=== PATIENT | female | born 1985 | race Caucasian/White ===

== ENCOUNTER 2022-04-17 17:57 | Inpatient (IN) | payer BC, SELFPAY ==
[2022-04-17 18:18] VITALS: BP 127/86; PULSE 114; RESP 18; TEMP 36.5; O2SAT 98; BMI 26.9
--- NOTE | 2022-04-17 18:18 | ED_ITS ---
HPI - General Adult General: Chief complaint: Psychiatric Symptoms Stated complaint: MHE Time Seen by Provider: 04/17/22 18:15 History of Present Illness: HPI: [36]yo patient w/ hx of depression presenting with worse depression and SI despite taking meds. Patient denies active plan. f or On arrival, the patient is AAOx3 and cooperative with my evaluation. No focal complaints of chest pain, shortness of breath, palpitations, N/V, focal GI/ complaints. Currently denies HI. No complaints of hallucinations. Onset: acute on chronic Duration: ongoing Location: home Severity: severe Associated symptoms: Deny chest pain, dyspnea, nausea, rash, palpitations or vomiting Review of Systems Const: Denies: fever(s) or chills Eyes: Denies: change in vision ENMT: Denies: mouth pain Card: Denies: chest pain or palpitations Resp: Denies: dyspnea or non-productive cough GI: Denies: abdominal pain, nausea, vomiting or diarrhea : Denies: dysuria Musc: Denies: extremity pain Skin/Breast: Denies: rash or new lesions Neuro: Denies: weakness in extremities Psych: Reports: depression and suicidal ideation Magno/Lymph: Denies: easy bruising PFSH ED PFSH: Medical History Depression Social History Smoking and tobacco status: never smoked Alcohol intake: never Substance/Drug Use: never Physical Exam Const: COMMON NORMALS: alert HENMT: COMMON NORMALS: atraumatic HEAD & SCALP: atraumatic MOUTH: moist mucous membranes not abnormal Eye: COMMON NORMALS: EOMs intact bilaterally and conjunctivae normal CONJUNCTIVA: Yes conjunctivae normal Neck/C-Spine: COMMON NORMALS: full ROM and supple Resp: COMMON NORMALS: normal respiratory effort and clear to auscultation bilaterally AUSCULTATION: clear to auscultation bilaterally Cardio: COMMON NORMALS: regular rate RATE: regular rate GI: COMMON NORMALS: Soft to palpation and non-tender PALPATION: Yes Soft to palpation OTHER: No focal TTP. NO guarding rebound, guarding, rigidity. No CVA tenderness to percussion. Neg Santiago/Neg McBurney's point tenderness, no suprabupic tenderness to palpation. Extremity: COMMON NORMALS: full ROM Neuro: SENSORIUM/ORIENTATION: Yes alert MOTOR EXAM: No Abnormal motor strength present and Other motor observations present (no focal motor deficits) Psych: COMMON NORMALS: speech normal SPEECH: Yes normal speech MOOD & AFFECT: Yes depressed mood Course Vital Signs: Vital signs: Vital Signs Temperature 97.7 F 04/17/22 18:18 Pulse Rate 114 H 04/17/22 18:18 Respiratory Rate 18 04/17/22 18:18 Blood Pressure 127/86 04/17/22 18:18 Pulse Oximetry 98 04/17/22 18:18 Oxygen Delivery Me thod 04/17/22 18:18 MDM - General Adult Medical Decision Making [36]yo patient w/ hx of depression presenting for SI with plan. HDS, exam within normal limit Thoughts are linear and organized, and the patient has no AH/VH, or HI. Clinically the patient displays no overt toxidrome; they are well appearing, with low suspicion for toxic ingestion given history and exam. Symptoms unlikely 2/2 anemia, hypothyroidism, infection, or ICH. Workup: CBC, CMP, Lipase, salicylate/tylenol, HCG, serum ethanol, UDS Lab findings: wnl [7:00p,] On reassessment, labs and workup wnl. Patient is hemodynamically stable with no acute medical complaints. Case discussed with psychiatric provider Dr. 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
[2022-04-17 18:59] LABS: Basophils # 0.1 10^3/uL (0.0-0.1); Basophils % 0.8 %; Eosinophils # 0.2 10^3/uL (0.0-0.8); Eosinophils % 1.4 %; Hematocrit 42.2 % (37.0-47.0); Hemoglobin 13.8 g/dL (11.5-15.3); Lymphocytes # 2.2 10^3/uL (0.8-4.8); Lymphocytes % 19.9 %; Mean Corpuscular HGB Conc 32.7 g/dL (30.0-36.0); Mean Corpuscular Hemoglobin 30.7 pg (28.0-34.0); Mean Corpuscular Volume 93.8 fl (81-99); Mean Platelet Volume 11.2 fL (7.4-10.4); Monocytes # 0.8 10^3/uL (0.2-0.9); Monocytes % 6.9 %; Neutrophils # 7.69 10^3/uL (1.8-7.7); Neutrophils % 70.5 %; Nucleated Red Blood Cells % 0 %; Platelet Count 314 10^3/cmm (130-400); Red Cell Distribution Width 11.9 % (12.1-15.1); White Blood Count 10.9 10^3/uL (4.0-10.0)
--- NOTE | 2022-04-17 19:07 | PC.NURSE ---
Report given to KRYSTYNA Clancy
--- NOTE | 2022-04-17 19:15 | PC.PHAR ---
PTS PHARMACIES ARE CLOSED FOR THE DAY- MEDICATIONS ARE WHAT PT STS SHE TAKES- SOME MEDS DID SHOW ON EXTERNAL MED LIST
[2022-04-17 19:17] LABS: Acetaminophen 7.7 ug/mL (10-30); Alanine Aminotransferase 14 U/L (0-33); Albumin Level 4.8 g/dL (3.5-5.2); Alkaline Phosphatase 106 U/L (35-105); Anion Gap 16.8 (5-19); Aspartate Amino Transferase 17 U/L (0-32); Blood Urea Nitrogen 13 mg/dL (6-20); Calcium 9.8 mg/dL (8.5-10.5); Carbon Dioxide 20 mmol/L (22-29); Chloride 100 mmol/L (98-107); Globulin 2.9 g/dL (1.3-4.6); Glomerular Filtration Rate 62.4 mL/min (90-130); Glucose 83 mg/dL (65-115); Lipase 35 U/L (13-60); Osmolality Calculated 275 mOsm/kg (285-295); Potassium 3.8 mmol/L (3.5-5.1); Sodium 133 mmol/L (136-145); Total Bilirubin 0.5 mg/dL (0.15-1.2); Total Protein 7.7 g/dL (6.6-8.7)
[2022-04-17 19:19] LABS: Salicylate < 0.3 mg/dL (3-10)
[2022-04-17] MEDS: acetaminophen 325 mg Tablet 650 MG PO (21:47)
[2022-04-17] MEDS: hyDROXYzine 25 mg Capsule 50 MG PO (21:49)
[2022-04-17] MEDS: trazodone 50 mg Tablet PO (21:50)
[2022-04-17 22:00] VITALS: BP 132/88; PULSE 112; RESP 17; TEMP 36.4; O2SAT 100
[2022-04-17 22:32] LABS: Amphetamines Screen Urine Negative (Negative); Barbiturates Screen Urine Negative (Negative); Benzodiazepines Screen Urine Negative (Negative); Cocaine Screen Urine Negative (Negative); Opiate Screen Urine Positive (Negative); PCP Screen Urine Negative (Negative); THC Screen Urine Negative (Negative)
[2022-04-18 06:00] VITALS: BP 98/61; PULSE 87; RESP 15; TEMP 36.7; O2SAT 98
[2022-04-18] MEDS: buPROPion SR (12 HR) 100 mg Tablet 200 MG PO ×2 (09:34→17:44)
[2022-04-18] MEDS: cetirizine 10 mg Tablet PO ×2 (09:35→18:45)
[2022-04-18] MEDS: duloxetine 30 mg Capsule 60 MG PO (09:35)
[2022-04-18] MEDS: ibuprofen 600 mg Tablet PO ×2 (09:36→18:45)
[2022-04-18] MEDS: topiramate 25 mg Tablet PO ×2 (09:37→17:44)
--- NOTE | 2022-04-18 10:02 | PC.NURSE ---
Nursing Behavioral Assessment Patient resting in bed. Patient said she had to take a trazodone last night to fall asleep and then slept well. Shee states she is experiencing pain in her back at a 5 out of a 1-10 scale. Patient also states she would like zyrtec as she is feeling congested this morning and is known to have seasonal allergies. Patient states she is having no visual or auditory hallucinations this AM. Also denies any homicidal ideations. However, she states she is having some suicidal thoughts that come and go, but has no plan. Patient stated she didn't like herself and felt she couldn't get her life together. She does state she could never kill herself because she could never leave her kids without a mom.
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
[2022-04-18 14:00] VITALS: BP 98/66; PULSE 100; RESP 18; TEMP 36.8; O2SAT 96
[2022-04-18] MEDS: escitalopram 10 mg Tablet 5 MG PO (16:40)
[2022-04-18] MEDS: duloxetine 30 mg Capsule PO (17:44)
[2022-04-18] MEDS: atomoxetine 40 mg Capsule PO (18:06)
[2022-04-18] MEDS: trazodone 50 mg Tablet PO (20:30)
[2022-04-18] MEDS: hyDROXYzine 25 mg Capsule 50 MG PO (20:30)
[2022-04-18 20:47] VITALS: BP 105/69; PULSE 97; RESP 16; TEMP 36.9; O2SAT 94
--- NOTE | 2022-04-18 21:36 | NUR.SHIFT ---
PT PRESENTS CALM AND COOPERATIVE AND ORIGINALLY REPORTED 09/13 ANXIETY AND DEPRESSION THEN CAME UP AND CHANGED IT TO 02/10 FOR BOTH. DENIES AVH, SI, HI BUT STATES, SOMETIMES I HAVE THOUGHTS OF SI. PT MOVED TO NORTH SIDE OF UNIT
[2022-04-19 06:00] VITALS: BP 106/73; PULSE 88; RESP 15; TEMP 36.5; O2SAT 97
[2022-04-19] MEDS: hyDROXYzine 25 mg Capsule 50 MG PO ×2 (08:57→15:15)
[2022-04-19] MEDS: topiramate 25 mg Tablet PO ×2 (08:58→17:29)
[2022-04-19] MEDS: atomoxetine 40 mg Capsule PO (08:58)
[2022-04-19] MEDS: duloxetine 30 mg Capsule 60 MG PO (08:58)
[2022-04-19] MEDS: buPROPion SR (12 HR) 100 mg Tablet 200 MG PO ×2 (08:58→17:29)
[2022-04-19] MEDS: cetirizine 10 mg Tablet PO (09:44)
[2022-04-19] MEDS: ibuprofen 600 mg Tablet PO ×2 (09:44→15:14)
--- NOTE | 2022-04-19 10:22 | W.PM.NPUPNS ---
Subjective NPU Subjective: Patient presents today reporting that she was feeling anxious earlier today and took an as needed medication. We reviewed the medications he took yesterday and she denied any side effects to those medications. We reviewed the plan to discontinue the Cymbalta, change the Wellbutrin to a morning dose only of the XL, in addition to the adding Lexapro and Strattera like we did yesterday and she understood and agreed to proceed as is documented in this note. She denied any side effects but did report ongoing depression and anxiety. Mental Status Exam MSE Comments: This is an overweight versus obese white female in hospital scrubs with adequate grooming and eye contact. No abnormal movements. Cooperative with exam in no acute distress. Speech was normal rate and volume. Mood described as depressed and anxious. Affect congruent. Thought process organized. Thought content: Patient denied suicidal or homicidal ideation, there are no delusions reported or noted, she denied any auditory or visual hallucinations attention and concentration appeared intact and memory was mostly reliable but none were formally tested. She is alert and oriented x3. Insight and judgment appear fair impulse control appears fair. Vitals/I&O/Wt Last Vital Signs Temp 97.7 F 04/19/22 06:00 Pulse 88 04/19/22 06:00 Resp 15 04/19/22 06:00 BP 106/73 04/19/22 06:00 Pulse Ox 97 04/19/22 06:00 O2 Del Method 04/19/22 06:00 Weight last 48 hrs Weight 68.946 kg Data NPU : 04/17/22 18:40 04/17/22 18:40 A&P Assessment and plan (1) History of ADHD: Status: Acute (2) Major depressive disorder, severe: Status: Acute (3) Suicidal ideation: Status: Acute (4) Anxiety disorder, unspecified: Status: Acute Plan A 36-year-old white female with a long history of mental health issues who presented with worsening depression reports of overwhelming ADHD symptoms left her unemployed and on leave against the backdrop of active treatment for psychiatric medications open to medication changes. 1. Continue medication. Lexapro 10 mg p.o. every morning and Strattera 40 mg daily with meal. We will switch to once daily Wellbutrin and discontinue Cymbalta. 2. Continue every 15 minute checks for safety. 3. Encourage individual, group and milieu therapy. Involuntary Hold Information 96 Hour Hold: 96 Hour Involuntary Admission: No Attestations NPU Medical Necessity Statement*: Inpatient hospitalization is medically necessary and the clinically appropriate intervention at this time. We will monitor medications and make changes as indicated. 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
[2022-04-19] MEDS: escitalopram 10 mg Tablet PO (11:01)
[2022-04-19 14:00] VITALS: BP 99/62; PULSE 87; RESP 18; TEMP 36.6; O2SAT 99
[2022-04-19] MEDS: OLANZapine 5 mg ODT PO (18:39)
[2022-04-19] MEDS: trazodone 50 mg Tablet PO (20:41)
[2022-04-19 20:56] VITALS: BP 117/75; PULSE 100; RESP 17; TEMP 36.9; O2SAT 96
[2022-04-20 06:00] VITALS: BP 95/55; PULSE 78; RESP 16; TEMP 36.5; O2SAT 98
[2022-04-20] MEDS: hyDROXYzine 25 mg Capsule 50 MG PO (08:23)
[2022-04-20] MEDS: ibuprofen 600 mg Tablet PO ×2 (08:23→20:26)
[2022-04-20] MEDS: topiramate 25 mg Tablet PO ×2 (08:24→17:25)
[2022-04-20] MEDS: magnesium hydroxide 30 mL UDC PO (08:24)
[2022-04-20] MEDS: escitalopram 10 mg Tablet PO (08:24)
[2022-04-20] MEDS: atomoxetine 40 mg Capsule PO (08:24)
[2022-04-20] MEDS: cetirizine 10 mg Tablet PO ×2 (08:24→18:27)
[2022-04-20] MEDS: buPROPion XL (24 HR) 300 mg Tablet PO (08:27)
[2022-04-20 12:59] VITALS: BP 99/64; PULSE 99; RESP 16; TEMP 36.6; O2SAT 100
--- NOTE | 2022-04-20 17:09 | W.PM.NPUPNS ---
Subjective NPU Subjective: Patient presents today reporting that she is still feeling anxious and took an as needed medication. We reviewed the medications she took yesterday and she denied any side effects to those medications. We discussed adding propranolol as needed in addition and she understood and agreed to proceed as is documented in this note. . Mental Status Exam MSE Comments: This is an overweight versus obese white female in hospital scrubs with adequate grooming and eye contact. No abnormal movements. Cooperative with exam in no acute distress. Speech was normal rate and volume. Mood described as not feeling better. Affect congruent. Thought process organized. Thought content: Patient denied suicidal or homicidal ideation, there are no delusions reported or noted, she denied any auditory or visual hallucinations attention and concentration appeared intact and memory was mostly reliable but none were formally tested. She is alert and oriented x3. Insight and judgment appear fair impulse control appears fair. Vitals/I&O/Wt Last Vital Signs Temp 97.9 F 04/20/22 12:59 Pulse 99 04/20/22 12:59 Resp 16 04/20/22 12:59 BP 99/64 04/20/22 12:59 Pulse Ox 100 04/20/22 12:59 O2 Del Method 04/20/22 12:59 Data NPU : 04/17/22 18:40 04/17/22 18:40 A&P Assessment and plan (1) History of ADHD: Status: Acute (2) Major depressive disorder, severe: Status: Acute (3) Suicidal ideation: Status: Acute (4) Anxiety disorder, unspecified: Status: Acute Plan A 36-year-old white female with a long history of mental health issues who presented with worsening depression reports of overwhelming ADHD symptoms left her unemployed and on leave against the backdrop of active treatment for psychiatric medications open to medication changes. 1. Continue medication. Lexapro 10 mg p.o. every morning and Strattera 40 mg daily with meal. Started once daily Wellbutrin and discontinue Cymbalta and twice daily Wellbutrin. 2. Continue every 15 minute checks for safety. 3. Encourage individual, group and milieu therapy. Involuntary Hold Information 96 Hour Hold: 96 Hour Involuntary Admission: No Attestations NPU Medical Necessity Statement*: Inpatient hospitalization is medically necessary and the clinically appropriate intervention at this time. We will monitor medications and make changes as indicated. 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
[2022-04-20] MEDS: propranolol 20 mg Tablet PO (17:25)
[2022-04-20 19:49] VITALS: BP 103/70; PULSE 89; RESP 17; TEMP 36.7; O2SAT 99
[2022-04-20] MEDS: trazodone 50 mg Tablet PO ×2 (20:27→23:54)
[2022-04-21] MEDS: alum-mag-hydroxide-sime 30 mL UDC PO ×2 (00:04→19:50)
[2022-04-21 06:00] VITALS: BP 92/57; PULSE 74; RESP 18; TEMP 36.6; O2SAT 96; BMI 26.9
[2022-04-21] MEDS: atomoxetine 40 mg Capsule PO (08:36)
[2022-04-21] MEDS: buPROPion XL (24 HR) 300 mg Tablet PO (08:36)
[2022-04-21] MEDS: hyDROXYzine 25 mg Capsule 50 MG PO ×2 (08:36→19:50)
[2022-04-21] MEDS: cetirizine 10 mg Tablet PO ×2 (08:36→17:21)
[2022-04-21] MEDS: escitalopram 10 mg Tablet PO (08:36)
[2022-04-21] MEDS: topiramate 25 mg Tablet PO ×2 (08:36→17:14)
[2022-04-21] MEDS: propranolol 20 mg Tablet PO ×2 (08:42→17:22)
[2022-04-21] MEDS: ibuprofen 600 mg Tablet PO ×2 (08:42→17:21)
[2022-04-21] MEDS: magnesium hydroxide 30 mL UDC PO (08:42)
[2022-04-21 14:00] VITALS: BP 98/63; PULSE 86; RESP 16; TEMP 37.1; O2SAT 100
--- NOTE | 2022-04-21 17:38 | P.NPUPN_ITS ---
Subjective NPU Subjective: Patient does today with significant frustration about wanting to be better sooner. We discussed at length her circumstance regarding ADHD. Including possibly increasing the Strattera tomorrow. Additionally we discussed how in some ways the way she thinks about the problem may be the problem. We talked about the need for therapy. She denies any new issues. Mental Status Exam MSE Comments: This is an overweight versus obese white female in hospital scrubs with adequate grooming and eye contact. No abnormal movements. Cooperative with exam in no acute distress. Speech was normal rate and volume. Mood described as not sure if I feel better. Affect stoic/subdued. Thought process organized. Thought content: Patient denied suicidal or homicidal ideation, there are no delusions reported or noted, she denied any auditory or visual hallucinations attention and concentration appeared intact and memory was mostly reliable but none were formally tested. She is alert and oriented x3. Insight and judgment appear fair impulse control appears fair. Vitals/I&O/Wt Last Vital Signs Temp 97.8 F 04/21/22 06:00 Pulse 74 04/21/22 06:00 Resp 18 04/21/22 06:00 BP 92/57 04/21/22 06:00 Pulse Ox 96 04/21/22 06:00 O2 Del Method 04/21/22 06:00 Weight last 48 hrs Weight 68.946 kg Data NPU : 04/17/22 18:40 04/17/22 18:40 A&P Assessment and plan (1) History of ADHD: Status: Acute (2) Major depressive disorder, severe: Status: Acute (3) Suicidal ideation: Status: Acute (4) Anxiety disorder, unspecified: Status: Acute Plan A 36-year-old white female with a long history of mental health issues who presented with worsening depression reports of overwhelming ADHD symptoms left her unemployed and on leave against the backdrop of active treatment for psychiatric medications open to medication changes. 1. Continue medication. Lexapro 10 mg p.o. every morning and Strattera 40 mg daily with meal. Started once daily Wellbutrin and discontinue Cymbalta and twice daily Wellbutrin. We will consider increasing Strattera and/or Lexapro tomorrow. Continue as needed propranolol. 2. Continue every 15 minute checks for safety. 3. Encourage individual, group and milieu therapy. Involuntary Hold Information 96 Hour Hold: 96 Hour Involuntary Admission: No Attestations NPU Medical Necessity Statement*: Inpatient hospitalization is medically necessary and the clinically appropriate intervention at this time. We will monitor medications and make changes as indicated. 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
[2022-04-21] MEDS: trazodone 50 mg Tablet PO (19:50)
[2022-04-21] MEDS: acetaminophen 325 mg Tablet 650 MG PO (19:50)
[2022-04-21 20:08] VITALS: BP 90/64; PULSE 93; RESP 18; TEMP 36.6; O2SAT 98
[2022-04-22 06:00] VITALS: BP 98/65; PULSE 68; RESP 18; TEMP 36.7; O2SAT 97
[2022-04-22] MEDS: escitalopram 10 mg Tablet PO (08:23)
[2022-04-22] MEDS: hyDROXYzine 25 mg Capsule 50 MG PO (08:23)
[2022-04-22] MEDS: cetirizine 10 mg Tablet PO (08:23)
[2022-04-22] MEDS: ibuprofen 600 mg Tablet PO ×2 (08:23→19:32)
[2022-04-22] MEDS: buPROPion XL (24 HR) 300 mg Tablet PO (08:23)
[2022-04-22] MEDS: topiramate 25 mg Tablet PO ×2 (08:23→16:51)
[2022-04-22] MEDS: magnesium hydroxide 30 mL UDC PO (08:23)
--- NOTE | 2022-04-22 09:59 | P.NPUPN_ITS ---
Subjective NPU Subjective: Patient presents today reporting maybe feeling a little better than she. He has very specific conversation about what medications will be changed today. We discussed in Wellbutrin XL to 450 mg every morning and Strattera 80 mg with a meal. We also discussed her needing to process these thi ngs as an outpatient and the likelihood for discharge in the next 48 hours. Mental Status Exam MSE Comments: This is an overweight versus obese white female in hospital scrubs with adequate grooming and eye contact. No abnormal movements. Cooperative with exam in no acute distress. Speech was normal rate and volume. Mood described as better than yesterday with. affect less subdued. Thought process organized. Thought content: Patient denied suicidal or homicidal ideation, there are no delusions reported or noted, she denied any auditory or visual hallucinations attention and concentration appeared intact and memory was mostly reliable but none were formally tested. She is alert and oriented x3. Insight and judgment appear fair impulse control appears fair. Vitals/I&O/Wt Last Vital Signs Temp 98.0 F 04/22/22 06:00 Pulse 68 04/22/22 06:00 Resp 18 04/22/22 06:00 BP 98/65 04/22/22 06:00 Pulse Ox 97 04/22/22 06:00 O2 Del Method 04/22/22 06:00 Weight last 48 hrs Weight 68.946 kg Data NPU : 04/17/22 18:40 04/17/22 18:40 A&P Assessment and plan (1) History of ADHD: Status: Acute (2) Major depressive disorder, severe: Status: Acute (3) Suicidal ideation: Status: Acute (4) Anxiety disorder, unspecified: Status: Acute Plan A 36-year-old white female with a long history of mental health issues who presented with worsening depression reports of overwhelming ADHD symptoms left her unemployed and on leave against the backdrop of active treatment for psychiatric medications open to medication changes. 1. Continue medication. Lexapro 10 mg p.o. every morning and increase Strattera to 80 mg daily with meal. Started once daily Wellbutrin and increase to 450mg total morning dose and discontinue Cymbalta and twice daily Wellbutrin. Continue as needed propranolol. 2. Continue every 15 minute checks for safety. 3. Encourage individual, group and milieu therapy. Involuntary Hold Information 96 Hour Hold: 96 Hour Involuntary Admission: No Attestations NPU Medical Necessity Statement*: Inpatient hospitalization is medically necessary and the clinically appropriate intervention at this time. We will monitor medications and make changes as indicated. 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
[2022-04-22] MEDS: buPROPion XL (24 HR) 150 mg Tablet PO (12:13)
[2022-04-22 14:00] VITALS: BP 110/75; PULSE 89; RESP 18; TEMP 36.9; O2SAT 98
[2022-04-22] MEDS: atomoxetine 40 mg Capsule 80 MG PO (16:48)
[2022-04-22 19:57] VITALS: BP 120/83; PULSE 94; RESP 18; TEMP 36.7; O2SAT 100
--- NOTE | 2022-04-22 20:15 | PC.NURSE ---
AT 1999 LAST EVENING, PT CAME TO NURSES DESK REQUESTING THE FOLLOWING MEDICATIONS BY NAME: MOTRIN, TRAZODONE, HYDROXYZINE, PROPRANOLOL, AND ZYRTEC. WHEN PT WAS INFORMED THAT HYDROXYZINE AND PROPRANOLOL ARE BOTH GIVEN FOR ANXIETY AND SHOULD NOT BE GIVEN TOGETHER. PT AGREED TO GO AHEAD AND TAKE HER MOTRIN AT THAT TIME. WAS NOT LONG AFTER PT CAME TO THE DESK, PHARMACY CALLED THE UNIT INFORMING APARTMENT COORDINATOR JOCELIN THAT PT HAD CALLED THE SUPERVISOR AREA POSING A STAFF NURSE WANTING TO KNOW IF PROPRANOLOL AND HYDROXYZINE CAN BE GIVEN TOGETHER. PT NEGLECTED TO INFORM PHARMACIST THAT SAID MEDS ARE BOTH BEING GIVEN FOR ANXIETY. SECURITY WAS ON UNIT AND NOTIFIED HAIR DRESSER. SUPERVISOR AREA WELL PHARMACY TALKED TO HAIR DRESSER CONFIRMING PT CONTACTING PHARMACY. PT WAS TOLD THAT THE PHARMACY CALLED TO INFORM UNIT STAFF OF PTS ACTIONS, AND THAT SHE CAN NOT BE DOING THAT. THIS PT WAS TOLD SEVERAL TIMES THAT SHE CANNOT BE CALLING OTHER UNITS IMPERSONATING A HOSPITAL STAFF MEMBER. PT BECAME AWARE OF HAIR DRESSER BEING ON UNIT AND PT STARTED YELLING THAT THIS NURSE WAS BEING MEAN TO HER, AND THAT THIS NURSE WAS DENYING HER HER MEDICATIONS. CHARGE NURSE GC RN TRIED TO TELL PT THAT SHE WAS NOT BEING DENIED SAID MEDS, BUT THAT SAID MEDS SHOULD NOT BE GIVEN TOGETHER FOR ANXIETY. THAT SAID MEDS CAN DROP A PERSONS BLOOD PRESSURE TO VERY LOW LEVELS, AND THAT HER BP THIS AM WAS VERY LOW AT 98/65. PT KEPT YELLING THAT SHE WAS GIVEN BOTH MEDS TOGETHER BY OTHER NURSES AND NOTHING HAPPENED. PT WAS THEN INFORMED BY HAIR DRESSER THAT THIS NURSE HAS BEEN A NURSE LONGER THAN SHE WAS ALIVE AND THAT IF THIS NURSE DID NOT FEEL COMFORTABLE GIVING SAID MEDS TOGETHER, THAT THIS NURSES JUDGMENT IS WARRANTED. SAID MEDICATIONS WERE OFFERED TO BE GIVEN A HOUR APART FROM EACH OTHER IF PT WOULD LIKE. PT REFUSED ALL MEDS BUT HER IBUPROFEN AT THAT TIME. THIS EPISODE WAS WITNESSED BY JUSTIN SIMPSON, PARISA RN, BINDU SECURITY, AND VICTOR MANUEL MUD GRINDER, WELL SEVERAL OF THE UNIT PTS.
[2022-04-23 06:00] VITALS: BP 113/74; PULSE 92; RESP 18; TEMP 36.4; O2SAT 100
[2022-04-23] MEDS: buPROPion XL (24 HR) 150 mg Tablet PO (08:07)
[2022-04-23] MEDS: topiramate 25 mg Tablet PO ×2 (08:07→16:58)
[2022-04-23] MEDS: buPROPion XL (24 HR) 300 mg Tablet PO (08:07)
[2022-04-23] MEDS: escitalopram 10 mg Tablet PO ×2 (08:07→11:56)
--- NOTE | 2022-04-23 10:26 | P.NPUPN_ITS ---
Subjective NPU Subjective: Patient presents today reporting that she had a rough night after having an interaction with the nurse when she was told she could not take Vistaril and propranolol together. That eventually led to her calling a pharmacy and identifying that it was not a disallowed combination. This led to further conflict and an interaction the left her very upset and reportedly tearful through the night. We discussed the importance of us managing her emotions and continuing with the plan for discharge tomorrow but that we would work on managing her challenges and reticence with leaving today. Mental Status Exam MSE Comments: This is an overweight versus obese white female in hospital scrubs with adequate grooming and eye contact. No abnormal movements. Cooperative with exam in no acute distress. Speech was normal rate and volume. Mood described as sad and embarrassed, affect tearful. Thought process organized. Thought content: Patient denied suicidal or homicidal ideation, there are no delusions reported or noted, she denied any auditory or visual hallucinations attention and concentration appeared intact and memory was mostly reliable but none were formally tested. She is alert and oriented x3. Insight and judgment appear fair impulse control appears fair. Vitals/I&O/Wt Last Vital Signs Temp 97.6 F 04/23/22 06:00 Pulse 92 04/23/22 06:00 Resp 18 04/23/22 06:00 BP 113/74 04/23/22 06:00 Pulse Ox 100 04/23/22 06:00 O2 Del Method 04/23/22 06:00 Data NPU : 04/17/22 18:40 04/17/22 18:40 A&P Assessment and plan (1) History of ADHD: Status: Acute (2) Major depressive disorder, severe: Status: Acute (3) Suicidal ideation: Status: Acute (4) Anxiety disorder, unspecified: Status: Acute Plan A 36-year-old white female with a long history of mental health issues who presented with worsening depression reports of overwhelming ADHD symptoms left her unemployed and on leave against the backdrop of active treatment for psychiatric medications open to medication changes. 1. Continue medication. Increase Lexapro to 20 mg p.o. every morning and increase Strattera to 80 mg daily with meal. Started once daily Wellbutrin and increase to 450mg total morning dose and discontinue Cymbalta and twice daily Wellbutrin. Continue as needed propranolol. 2. Continue every 15 minute checks for safety. 3. Encourage individual, group and milieu therapy. Involuntary Hold Information 96 Hour Hold: 96 Hour Involuntary Admission: No Attestations NPU Medical Necessity Statement*: Inpatient hospitalization is medically necessary and the clinically appropriate intervention at this time. We will monitor medications and make changes as indicated. Likely length of stay 1 day. Coding Level of Care Code Acute [facility] [facility] Diagnoses History of ADHD Z86.59 Major depressive disorder, severe F32.2 Suicidal ideation R45.851 Anxiety disorder, unspecified F41.9
[2022-04-23] MEDS: ibuprofen 600 mg Tablet PO ×2 (11:56→18:24)
[2022-04-23] MEDS: cetirizine 10 mg Tablet PO (11:56)
[2022-04-23 14:00] VITALS: BP 124/84; PULSE 97; RESP 17; TEMP 36.8; O2SAT 97
[2022-04-23] MEDS: atomoxetine 40 mg Capsule 80 MG PO (16:58)
[2022-04-23 21:19] VITALS: BP 119/76; PULSE 88; RESP 17; TEMP 36.6; O2SAT 96
[2022-04-24 06:00] VITALS: BP 122/82; PULSE 71; RESP 16; TEMP 36.4; O2SAT 100
[2022-04-24] MEDS: buPROPion XL (24 HR) 300 mg Tablet PO (08:55)
[2022-04-24] MEDS: buPROPion XL (24 HR) 150 mg Tablet PO (08:56)
[2022-04-24] MEDS: topiramate 25 mg Tablet PO (08:56)
[2022-04-24] MEDS: escitalopram 10 mg Tablet 20 MG PO (08:56)
[2022-04-24] MEDS: ibuprofen 600 mg Tablet PO (10:04)
[2022-04-24] MEDS: cetirizine 10 mg Tablet PO (10:05)
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
[2022-04-24 11:54] VITALS: BP 122/82; PULSE 71; RESP 16; TEMP 36.4; O2SAT 100
== END 2022-04-24 13:00 | disposition home or self-care (01) | DRG 885 ==
LOC: ER 18:30 → NP 04-18 03:50
PROVIDERS: Admitting Provider Psychiatry & Neurology Psychiatry; Emergency Provider Emergency Medicine; PCP Family Medicine; Visit Provider Psychiatry & Neurology Psychiatry
DX: F33.2 Major depressive disorder, recurrent severe without psychotic features (principal); R45.851 Suicidal ideations; F90.9 Attention-deficit hyperactivity disorder, unspecified type; F41.9 Anxiety disorder, unspecified
CPT/HCPCS: 36415; 80053; 80306; 80307; 81025; 83690; 85025; 97150; 97165; 99285

== ENCOUNTER → 2022-06-18 16:06 | Outpatient (BNVA) | payer BC, SELFPAY | PROVIDERS: PCP Family Medicine; Visit Provider Nurse Practitioner Psychiatric/Mental Health | DX: Z03.89 Encounter for observation for other suspected diseases and conditions ruled out (principal) | CPT/HCPCS: 80306 ==

== ENCOUNTER → 2022-08-06 19:23 | Outpatient (BNVA) | payer BC, MEDICAID, SELFPAY | PROVIDERS: PCP Family Medicine; Visit Provider Nurse Practitioner Family | DX: M79.644 Pain in right finger(s) (principal) | CPT/HCPCS: 73130 ==

== ENCOUNTER → 2022-09-12 11:11 | Outpatient (BNVA) | payer OTHER, SELFPAY | PROVIDERS: PCP Family Medicine; Visit Provider Nurse Practitioner Psychiatric/Mental Health | DX: F41.9 Anxiety disorder, unspecified (principal) | CPT/HCPCS: 80061; 83036 ==

== ENCOUNTER 2022-09-14 14:23 | Emergency (ER) | payer BC, MEDICAID, SELFPAY ==
[2022-09-14 14:27] VITALS: BP 130/96; PULSE 93; RESP 16; TEMP 36.6; O2SAT 99
[2022-09-14 14:38] VITALS: BP 130/96; PULSE 87; RESP 16; O2SAT 98
--- NOTE | 2022-09-14 14:39 | ECG_ITS ---
[facility] Test Date: 2022-09-14 Pat Name: Gege Nascimento Department: Room: Gender: Female Transmission Supervisor: : 1985 Requested By: Luis Johnson Order Number: [id number] Xiao MD: Marvin Valdes M.D. Measurements Intervals [place] Rate: 83 P: 74 VT: 152 QRS: 60 QRSD: 85 T: 57 QT: 344 QTc: 405 Interpretive Statements SINUS RHYTHM NONSPECIFIC T-WAVE ABNORMALITY No previous ECG available for comparison Electronically Signed On 09-14-2022 15:19:49 UPHOLSTERER APPRENTICE by Marvin Valdes M.D. [id number]
--- NOTE | 2022-09-14 14:39 | XRR_ITS ---
PROCEDURE INFORMATION: Exam: XR Chest Exam date and time: 09/14/2022 2:58 PM Age: 37 years old Clinical indication: Pain; Chest pressure; Additional info: Cp TECHNIQUE: Imaging protocol: Radiologic exam of the chest. Views: 1 view. COMPARISON: No relevant prior studies available. FINDINGS: Tubes, catheters and devices: Overlying chest monitor leads are seen. Lungs: Unremarkable. No consolidation. Pleural spaces: Unremarkable. No pleural effusion. No pneumothorax. Heart/Mediastinum: Unremarkable. No cardiomegaly. Bones/joints: Unremarkable. XR/XR chest 1V portable [id number] IMPRESSION: No acute cardiopulmonary abnormality.
--- NOTE | 2022-09-14 14:40 | ED_ITS ---
HPI - Chest Pain General: Chief Complaint: Chest Pain Stated Complaint: SOB, Chest Pain Time Seen by Provider: 09/14/22 14:27 Source: patient and family Mode of arrival: ambulatory Limitations: no limitations History of Present Illness: This patient has made her way to the emergency department today because she is concerned about episodes of chest discomfort which have been short in duration that have been occurring intermittently over the past 10 days or thereabouts and also some intermittent episodes of shortness of breath. He states that they seem to be with activity. They never awaken her from sleep. They seem to be short in duration when they occur. She denies any sensation of feeling like her heart is skipping or racing during these episodes. She has not been recently ill with cough fever etc. She has no history of reactive airway disease. She is a non-smoker. She has been recently diagnosed over the past year with ADHD and has been on couple of antidepressants and then just over the past 8 weeks or thereabouts has had Ritalin added to her regimen. She has been titrated upwards and is now on 20 mg twice daily. She states that she really does not feel a whole lot different on the medication. She denies street drugs, alcohol, energy drinks etc. She has an IUD for contraception. No other exogenous hormones. No history of thromboembolic disease. MD complaint: chest heaviness Timing of current episode: episodic Onset: during exertion Severity: mild Relieving factors: nothing Associated symptoms: Deny abdominal pain, fever(s), nausea, palpitations, syncope or vomiting Risk Factors: Coronary artery disease risk factors: none Review of Systems Const: Denies: fever(s) or chills Eyes: Denies: change in vision ENMT: Denies: throat pain, odynophagia, nasal discharge or nasal congestion Card: Reports: chest pain and dyspnea on exertion; Denies: palpitations, irregular heart rhythm, syncope or pre-syncope Resp: Denies: productive cough, non-productive cough, wheezing or stridor GI: Denies: abdominal pain, nausea, vomiting or diarrhea : Denies: flank pain, difficulty voiding or dysuria Musc: Denies: neck pain, back pain, extremity pain or extremity swelling Skin/Breast: Denies: rash Neuro: Denies: headache(s), numbness in extremities or weakness in extremities Psych: Denies: anxiety, mood swings or panic attacks Endo: Denies: polyuria or polydipsia PFS ED PFSH: Medical History Adult ADHD Depression Psychiatric care Family History Other Major depressive disorder, severe Social History Smoking and tobacco status: never smoked Second hand smoke exposure: No Alcohol intake: never Adopted: No Caregiver/support person: No Lives independently: Yes Household members: children Housing: House Marital status: Legally Number of children: 2 Highest education level completed: Bachelor's Degree 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 service: No Current occupational status: employed Current occupational exposures/hazards: No Pets and animals: Yes Pets & animals: cat(s) and dog(s) Pets & animal details: 3 dogs and cat History of recent travel: No Leisure activites: art and other Leisure activities details: pic.art adam., movies Lauren/Uatsdin: [employer] Agree to transfusion: Yes Financial difficulty paying for basics: Not Very Hard Female Reproductive History: Date of last menstrual period: 08/12/22 Para: 2 Spontaneous abortions: No Physical Exam Narrative: EXAM NARRATIVE: She is alert, comfortable, calm and makes good eye contact and her speech is fluent and not pressured. Const: COMMON NORMALS: no acute distress, average body habitus and patient oriented x3 GENERAL APPEARANCE: cooperative and comfortable HENMT: COMMON NORMALS: normocephalic, Normal nasal mucous membranes and turbinates present, moist oral mucous membranes and oropharynx normal HEAD & SCALP: normocephalic NOSE: Normal nasal mucous membranes and turbinates present Eye: COMMON NORMALS: Equal, round and reactive pupils present, EOMs intact bilaterally and conjunctivae normal CONJUNCTIVA: Yes conjunctivae normal PUPIL: Yes Equal, round and reactive pupils present Neck/C-Spine: COMMON NORMALS: full ROM, no lymphadenopathy, supple and Thyroid normal THYROID: Thyroid normal Chest: COMMONS NORMALS: normal inspection of the chest Resp: COMMON NORMALS: normal respiratory effort, No use of accessory muscles and clear to auscultation bilaterally AUSCULTATION: clear to auscultation bilaterally Cardio: COMMON NORMALS: regular rate, regular rhythm, No murmurs present (Cardio) and Peripheral pulses 2+ throughout RATE: regular rate RHYTHM: regular rhythm PERIPHERAL PULSES: Peripheral pulses 2+ throughout GI: COMMON NORMALS: Normal to inspection, nondistended, normoactive bowel sounds present and Soft to palpation PALPATION: Yes Soft to palpation : COMMON NORMALS: Yes no CVA tenderness BLADDER/KIDNEY EXAM: Yes no CVA tenderness Back/Pelvis: COMMON NORMALS: no CVA tenderness, thoracic and lumbar spine normal to inspection, no thoracic nor lumbar tenderness, thoraco-lumbar ROM normal and straight leg raise negative bilaterally Extremity: COMMON NORMALS: normal to inspection, capillary refill normal, no joint enlargement, no calf tenderness and no pedal edema Neuro: COMMON NORMALS: patient oriented x3, moves all extremities, no focal motor deficits and no sensory deficits noted Psych: COMMON NORMALS: mental status grossly normal, Normal thought process present, cooperative, normal affect, speech normal, denies homicidal ideation and denies suicidal ideation SPEECH: Yes normal speech THOUGHT PROCESS: Normal thought process present Skin: COMMON NORMALS: no rashes or lesions noted, turgor normal and no jaundice GENERAL SKIN EXAM: no rashes or lesions noted and turgor normal Course Reevaluation(s): Reevaluation #1: Patient remained stable. No new or focal findings on repeat examination. Her initial troponin and electrocardiogram, D-dimer etc. are all very reassuring. I discussed that findings today are reassuring that additional work-up may be indicated as well. I also alluded to perhaps her Ritalin may be a factor in her symptoms that she has only been taking that a few weeks and it is a stimulant. She also wonders if there is may be some allergic component. She has had she describes as some occasional wheezing. She does relate that she has a cat in her home now for the past several weeks and has never had a cat in the home before. She does state that she was previously allergy tested when she was younger and showed that she did have potential allergy to cat dander so that raises that potential as well. Time: 16:46 Vital Signs: Vital signs: Vital Signs Temperature 97.8 F 09/14/22 14:27 Pulse Rate 92 09/14/22 14:49 Respiratory Rate 16 09/14/22 14:49 Blood Pressure 130/96 09/14/22 14:49 Pulse Oximetry 100 09/14/22 14:49 Oxygen Delivery Me thod 09/14/22 14:49 MDM - Chest Pain Medical Decision Making This lady presented to emergency department because she was having concerns about symptoms of subjective dyspnea with exertion over the past 1 to 2 weeks. She also noted some heaviness in her chest at times. She denied any knowledge of any palpitations, irregular heartbeat etc. She is a nontobacco user, no history of reactive airway disease etc. No risk of thromboembolic events. History of recent ADHD diagnosis on 2 nonstimulant medications for some time but recently had Ritalin added to her regimen. Her evaluation in the emergency department revealed a clinically stable individual with no evidence of perturbation in her vital signs. Clinical exam is also reassuring without any evidence of stigmata of hypothyroid or hyperthyroidism, thromboembolic risk etc. Her evaluation revealed serial EKGs which were reassuring without any evidence of preexcitation or other risk for arrhythmia. Prolonged monitoring while in the emergency department did not display any arrhythmias at rest. Her laboratories were reassuring to include troponin, D-dimer, chest x-ray. Does not appear to be any ongoing risk of ACS, thromboembolic issues etc. at this time. Certainly could represent a undiagnosed arrhythmia, possible contribution of her medications specifically Ritalin Ritalin or in fact some reactive airway disease by her admission that she had a cat in the home with a history of cat allergies. Plan will be to refer for ambulatory monitoring, give her a trial of a metered-dose inhaler and have her follow-up with primary care for additional work-up as indicated. All findings and implications and limitations were discussed with the patient at this time. She is stable at this time to be discharged for additional work-up and return precautions. Medical Records I reviewed the patient's medical records. Lab Data I reviewed the patient's lab results. 09/14/22 14:51 09/14/22 14:51 Radiology Impressions Chest X-Ray 09/14/22 14:39 IMPRESSION: No acute cardiopulmonary abnormality. Laboratory Results WBC 7.1 10^3/uL (4.0-10.0) 09/14/22 14:51 RBC 4.30 10^6/uL (4.1-5.3) 09/14/22 14:51 Hgb 13.3 g/dL (11.5-15.3) 09/14/22 14:51 Hct 40.8 % (37.0-47.0) 09/14/22 14:51 MCV 94.9 fl (81-99) 09/14/22 14:51 MCH 30.9 pg (28.0-34.0) 09/14/22 14:51 MCHC 32.6 g/dL (30.0-36.0) 09/14/22 14:51 RDW 12.3 % (12.1-15.1) 09/14/22 14:51 Plt Count 256 10^3/cmm (130-400) 09/14/22 14:51 MPV 11.9 fL (7.4-10.4) H 09/14/22 14:51 Neut % (Auto) 56.9 % 09/14/22 14:51 Lymph % (Auto) 29.3 % 09/14/22 14:51 Ness % (Auto) 8.2 % 09/14/22 14:51 Eos % (Auto) 2.5 % 09/14/22 14:51 Baso % (Auto) 1.0 % 09/14/22 14:51 Neut # (Auto) 4.03 10^3/uL (1.8-7.7) 09/14/22 14:51 Lymph # (Auto) 2.1 10^3/uL (0.8-4.8) 09/14/22 14:51 Ness # (Auto) 0.6 10^3/uL (0.2-0.9) 09/14/22 14:51 Eos # (Auto) 0.2 10^3/uL (0.0-0.8) 09/14/22 14:51 Baso # (Auto) 0.1 10^3/uL (0.0-0.1) 09/14/22 14:51 Nucleated RBC % (auto) 0 % 09/14/22 14:51 Nucleated RBCs # 0.0 /100WBC 09/14/22 14:51 D-Dimer <= 0.27 ug/mIFEU (0-0.59) 09/14/22 14:51 Sodium 138 mmol/L (136-145) 09/14/22 14:51 Potassium 3.9 mmol/L (3.5-5.1) 09/14/22 14:51 Chloride 104 mmol/L (98-107) 09/14/22 14:51 Carbon Dioxide 22 mmol/L (22-29) 09/14/22 14:51 Anion Gap 15.9 (5-19) 09/14/22 14:51 BUN 17 mg/dL (6-20) 09/14/22 14:51 Creatinine 0.9 mg/dL (0.5-0.9) 09/14/22 14:51 GFR Calculation 70.1 mL/min (90-130) L 09/14/22 14:51 Glucose 114 mg/dL (65-115) 09/14/22 14:51 Calculated Osmolality 288 mOsm/kg (285-295) 09/14/22 14:51 Calcium 9.7 mg/dL (8.5-10.5) 09/14/22 14:51 Total Bilirubin 0.4 mg/dL (0.15-1.2) 09/14/22 14:51 AST 14 U/L (0-32) 09/14/22 14:51 ALT 12 U/L (0-33) 09/14/22 14:51 Alkaline Phosphatase 113 U/L (35-105) H 09/14/22 14:51 Troponin T Baseline 6 ng/L (0-10) 09/14/22 14:51 Total Protein 7.1 g/dL (6.6-8.7) 09/14/22 14:51 Albumin 4.7 g/dL (3.5-5.2) 09/14/22 14:51 Globulin 2.4 g/dL (1.3-4.6) 09/14/22 14:51 EKG Data EKG 1: I personally reviewed and interpreted this EKG as follows: Interpretation: Contemporaneous review of EKG reveals ventricular rate of 83 bpm. Normal TN interval. Normal QRS duration. Normal corrected QT interval. Normal axis. No acute ST-T wave changes of concern noted at this time. EKG 2: I personally reviewed and interpreted this EKG as follows: Interpretation: Contemporaneous review of the second EKG this visit revealed normal ventricular rate of 8091 bpm. TN, QRS, QT corrected intervals are all normal. [place] are normal. No acute ST-T wave changes noted of concern at this time. No evidence of preexcitation, shortened or prolonged QT etc. No evidence of Brugada. Discharge Plan Discharge Patient Disposition: Home Clinical Impression: Atypical chest pain, NICOLAS (dyspnea on exertion), Adult ADHD Condition: Stable Prescriptions: New albuterol sulfate 90 mcg/actuation HFA aerosol inhaler 2 inh inhalation Q6H PRN (Reason: shortness of breath or wheezing) Qty: 6.7 0RF No Action trazodone 50 mg tablet 50 mg PO DAILY PRN (Reason: insomnia) Topamax 25 mg tablet 25 mg PO BID 30 Days Qty: 60 1RF acetaminophen-codeine 300-60 mg tablet 1 tab PO QID bupropion HCl 300 mg tablet extended release 24 hr 300 mg PO DAILY 30 Days Qty: 30 0RF duloxetine 60 mg capsule,delayed release(DR/EC) 60 mg PO DAILY Qty: 30 1RF propranolol 20 mg tablet 20 mg PO TID PRN (Reason: Anxiety) 30 Days Qty: 90 0RF Rx Instructions: Take 1 tablet up to 3 times a day, if needed for anxiety;hold for low BP hydroxyzine pamoate 25 mg capsule 50 mg PO BID PRN (Reason: Anxiety) Qty: 60 0RF methylphenidate HCl 20 mg tablet 20 mg PO BID 30 Days Qty: 60 0RF cetirizine [Zyrtec] 10 mg Tablet 10 mg PO BID PRN (Reason: Allergy Symptoms) acetaminophen [Tylenol] 325 mg Capsule 325 mg PO QID PRN (Reason: Pain) Advil 200 mg tablet 800 mg PO Q8H PRN (Reason: Pain) albuterol sulfate 90 mcg/actuation Hfa Aerosol Inhaler 2 puff INHALATION QID PRN (Reason: Shortness Of Breath Or Wheezing) Movantik 25 mg tablet 25 mg PO BID Narcan 4 mg/actuation [place],Non-Aerosol 4 mg INTRANASAL Q2M PRN (Reason: Opioid Overdose) Rx Instructions: spray 1 dose into ONE nostril; alternate nostrils w each dose until help arrives Discharge Orders: Discharge ED (Routine); Ordered 09/14/22 Ordered By: Luis Johnson Referrals: Dex Albrecht MD [Primary Care Provider] - Discharge Diet: Usual diet Discharge Activity: Increase activity as tolerated Patient Instructions: Opioid Safety, Pain Management Activity Restrictions/Additional Instructions: Continue medications as previously prescribed. We have added a metered-dose inhaler to help your symptoms of shortness of breath if you notice that your wheezing etc. you may use 2 puffs as often as every 6 hours for that symptom. We also made a consultation to case management to arrange a ambulatory heart monitor for you. They will contact you to make those arrangements. Can continue to monitor your symptoms and if your symptoms persist worsen or new sy mptoms develop return to this or the nearest emergency department or follow-up with your regular prescribing doctor. Coding Level of Care Code ED Esol Teacher Assistant for Una Celis
[2022-09-14 14:49] VITALS: BP 130/96; PULSE 92; RESP 16; O2SAT 100
[2022-09-14 15:08] LABS: Basophils # 0.1 10^3/uL (0.0-0.1); Eosinophils # 0.2 10^3/uL (0.0-0.8); Eosinophils % 2.5 %; Hematocrit 40.8 % (37.0-47.0); Hemoglobin 13.3 g/dL (11.5-15.3); Lymphocytes # 2.1 10^3/uL (0.8-4.8); Lymphocytes % 29.3 %; Mean Corpuscular HGB Conc 32.6 g/dL (30.0-36.0); Mean Corpuscular Hemoglobin 30.9 pg (28.0-34.0); Mean Corpuscular Volume 94.9 fl (81-99); Mean Platelet Volume 11.9 fL (7.4-10.4); Monocytes # 0.6 10^3/uL (0.2-0.9); Monocytes % 8.2 %; Neutrophils # 4.03 10^3/uL (1.8-7.7); Neutrophils % 56.9 %; Nucleated Red Blood Cells % 0 %; Platelet Count 256 10^3/cmm (130-400); Red Cell Distribution Width 12.3 % (12.1-15.1); White Blood Count 7.1 10^3/uL (4.0-10.0)
[2022-09-14 15:25] LABS: Alanine Aminotransferase 12 U/L (0-33); Albumin Level 4.7 g/dL (3.5-5.2); Alkaline Phosphatase 113 U/L (35-105); Anion Gap 15.9 (5-19); Aspartate Amino Transferase 14 U/L (0-32); Blood Urea Nitrogen 17 mg/dL (6-20); Calcium 9.7 mg/dL (8.5-10.5); Carbon Dioxide 22 mmol/L (22-29); Chloride 104 mmol/L (98-107); Globulin 2.4 g/dL (1.3-4.6); Glomerular Filtration Rate 70.1 mL/min (90-130); Glucose 114 mg/dL (65-115); Osmolality Calculated 288 mOsm/kg (285-295); Potassium 3.9 mmol/L (3.5-5.1); Sodium 138 mmol/L (136-145); Total Bilirubin 0.4 mg/dL (0.15-1.2); Total Protein 7.1 g/dL (6.6-8.7)
[2022-09-14 15:26] LABS: Troponin(5th) Baseline 6 ng/L (0-10)
[2022-09-14 15:29] LABS: D Dimer <= 0.27 ug/mIFEU (0-0.59)
--- NOTE | 2022-09-14 16:39 | ECG_ITS ---
[facility] Test Date: 2022-09-14 Pat Name: Gege Nascimento Department: Room: Gender: Female Manual Winder: : 1985 Requested By: Luis Johnson Order Number: [id number] Xiao MD: Marvin Valdes M.D. Measurements Intervals [place] Rate: 91 P: 70 [place]: 146 QRS: 64 QRSD: 92 T: 72 QT: 345 QTc: 424 Interpretive Statements SINUS RHYTHM NONSPECIFIC T-WAVE ABNORMALITY Compared to ECG 09/14/2022 14:30:51 No significant changes Electronically Signed On 09-15-2022 8:42:17 PROOF MACHINE OPERATOR by Marvin Valdes M.D. [id number]
[2022-09-14 17:29] VITALS: BP 130/96; PULSE 92; RESP 16; O2SAT 100
[2022-09-14 17:42] LABS: Troponin 5 2HR Delta 0 ABS# (0-10)
--- NOTE | 2022-09-16 10:49 | DCPLANNER ---
Addendum entered by Carmen Donohue 10/04/22 07:35: Patient had a follow up appointment at [facility] - patient did attend appointment. Addendum entered by Carmen Donohue 09/18/22 12:51: Patient has a follow up appointment scheduled for Friday, September 25, 2022 at 11:00. Clinic will call patient with appointment information. Original Note: retail operations manager had message to schedule a follow up appointment for patient for a 8 day ambulatory monitor. retail operations manager faxed signed order to centralized scheduling, who will call patient with appointment information.
== END 2022-09-14 17:31 | disposition home or self-care (01) ==
PROVIDERS: Emergency Provider Emergency Medicine; PCP Family Medicine
DX: R07.89 Other chest pain (principal); R06.00 Dyspnea, unspecified; F90.9 Attention-deficit hyperactivity disorder, unspecified type
CPT/HCPCS: 36415; 71045; 80053; 84484; 85025; 85378; 93005; 99285

== ENCOUNTER 2022-09-23 08:54 | Outpatient (CLI) | payer BC, MEDICAID, SELFPAY ==
--- NOTE | 2022-09-23 | MR_ITS ---
WS: [id number] MRI CERVICAL SPINE NONCONTRAST HISTORY: CERVICALGIA COMPARISON: None available. Technique: Multiplanar, multisequence noncontrast imaging of the cervical spine. Mild straightening and reversal of the normal cervical lordosis. Asymmetric disc space narrowing at C 5-6. Very slight anterolisthesis of C5. Signal within the cervical cord is normal. Visualized posterior fossa is unremarkable. Craniocervical junction, C1 and C2 relationship, odontoid process and soft tissues are normal. C2-C3: Normal. C3-C4: Normal. C4-C5: Normal. C5-C6: Central disc protrusion and mild osteophytic ridging. Asymmetric narrowing of the disc space w ith very slight anterolisthesis of C5. Mild central stenosis. No significant foraminal stenosis. C6-C7: Mild annular disc bulging slightly asymmetric to the RIGHT. No high-grade stenosis. C7-T1: Normal. Paraspinal soft tissue are normal. MR/MR cervical spin wo con* [id number] IMPRESSION: 1. Asymmetric disc space narrowing and desiccation at C5-6 with minimal solitario listhesis of C5. 2. Asymmetric disc bulging with a central disc protrusion at C5-6 resulting in mild central stenosis. 3. Mild asymmetric disc bulging at C6-7, slightly greater to the RIGHT. No hig h-grade stenosis.
== END 2022-09-23 08:55 | disposition home or self-care (01) ==
PROVIDERS: PCP Family Medicine; Visit Provider Anesthesiology Pain Medicine
DX: M48.02 Spinal stenosis, cervical region (principal); M50.222 Other cervical disc displacement at C5-C6 level
CPT/HCPCS: 72141

== ENCOUNTER → 2022-10-29 09:35 | Outpatient (BNVA) | payer BC, MEDICAID, SELFPAY ==
[2022-09-23 14:33] VITALS: BP 121/87; BMI 29.0
== END ==
PROVIDERS: PCP Family Medicine; Visit Provider Internal Medicine Rheumatology
DX: M54.9 Dorsalgia, unspecified (principal)
CPT/HCPCS: 72072; 72100

== ENCOUNTER → 2022-12-05 11:32 | Outpatient (BNVA) | payer BC, MEDICAID, SELFPAY ==
[2022-09-23 14:33] VITALS: BP 121/87; BMI 29.0
== END ==
PROVIDERS: PCP Family Medicine; Referring Provider Dermatology; Visit Provider Physician Assistant
DX: M54.50 Low back pain, unspecified (principal)
CPT/HCPCS: 72110

== ENCOUNTER 2022-12-16 13:50 | Outpatient (CLI) | payer BC, MEDICAID, SELFPAY ==
[2022-09-23 14:33] VITALS: BP 121/87; BMI 29.0
--- NOTE | 2022-12-16 14:16 | XR_ITS ---
WS: [id number] Lumbar spine, 5 views including obliques, 12/16/2022 Clinical Data: LOWER BACK PAIN Comparison: Lumbar spine, 12/05/2022 Findings: No compression fractures or subluxation is seen. No disc space narrowing is seen. The transverse proc esses and SI joints are normal. There is a gentle dextroscoliosis. No leak films show no spondylolysis. There is an IUD in the region of the uterus. There is a large amount of fecal material throughout the colon. XR/XR lumbar spine min 4V [id number] Impression: 1. Minimal dextroscoliosis. 2. Negative for spondylolysis on the oblique films.
[2022-12-19 19:20] LABS: Honey Bee (i1) IGE <0.10 kU/L; Honey Bee Venom Class 0; Paper Wasp (i4) IGE <0.10 kU/L; Paper Wasp Class 0; White-Faced Hornet (i2) IGE <0.10 kU/L; White-Faced Hornet Class 0; Yellow Hornet (i5) IGE <0.10 kU/L; Yellow Hornet Class 0; Yellow Jacket (i3)IGE <0.10 kU/L; Yellow Jacket Class 0
== END 2022-12-16 13:51 | disposition home or self-care (01) ==
PROVIDERS: PCP Family Medicine; Referring Provider Otolaryngology; Visit Provider Family Medicine
DX: M54.50 Low back pain, unspecified (principal); G89.29 Other chronic pain; Z91.038 Other insect allergy status
CPT/HCPCS: 72110; 86003

== ENCOUNTER → 2022-12-19 11:03 | Outpatient (BNVA) | payer BC, MEDICAID, SELFPAY ==
[2022-09-23 14:33] VITALS: BP 121/87; BMI 29.0
== END ==
PROVIDERS: PCP Family Medicine; Referring Provider Dermatology; Visit Provider Student in an Organized Health Care Education/Training Program
DX: M25.561 Pain in right knee (principal)
CPT/HCPCS: 73560; 73565

== ENCOUNTER 2023-01-08 13:14 | Outpatient (CLI) | payer BC, MEDICAID, SELFPAY ==
[2022-09-23 14:33] VITALS: BP 121/87; BMI 29.0
--- NOTE | 2023-01-08 13:00 | MR_ITS ---
WS: [id number] MRI RIGHT KNEE HISTORY: pain COMPARISON: Radiograph 12/20/2019. Anterior cruciate ligament: Intact. Posterior cruciate ligament: Intact. Medial collateral ligament: Intact. Posterior lateral corner structures: Intact. Medial menisci: Intact. Normal signal, size and shape. Lateral meniscus: Intact. Normal signal, size and shape. Extensor mechanism: Distal quadriceps tendon and patellar tendons are intact. Fluid and soft tissue: No joint effusion. Very small Donaldson's cyst. Osseous and articular structures: Patellofemoral compartment: Normal. Medial compartment: Normal. Lateral compartment: Normal. MR/MR knee RT wo con* [id number] IMPRESSION: 1. No acute abnormalities RIGHT knee. 2. Very small Donaldson's cyst. Otherwise negative.
--- NOTE | 2023-01-08 13:45 | MR_ITS ---
WS: [id number] MRI PELVIS without CONTRAST. COMPARISON: None Multiplanar, multisequence imaging is performed without contrast. History: Chronic sacral and coccygeal pain. No injury. Normal appearance of the SI joints and pelvic osseous structures. No erosions or widening of the SI j oints. No marrow edema or fracture. No soft tissue abnormality or tract. There is a sharp curvature o f the sacrococcygeal junction which is a normal variant. No marrow edema or fracture within the sacru m or coccyx. Uterus is normal in midline. LEFT ovarian follicle at 2.1 cm. No significant narrowing of the hip silvio nts. The visualized GI tract is normal. MR/MR pelvis wo con* [id number] IMPRESSION: Negative MRI pelvis. Sharp focal curvature involving the sacrococcygeal junction is a normal variant .
--- NOTE | 2023-01-08 15:05 | XRR_ITS ---
PROCEDURE INFORMATION: Exam: XR Sacrum and Coccyx, 2 or More Views Exam date and time: 01/08/2023 3:07 PM Age: 37 years old Clinical indication: Pain in coccyx area; Additional info: Compression FX TECHNIQUE: Imaging protocol: XR of the sacrum and coccyx, 2 or more views. COMPARISON: MR pelvis wo con* [id number] 01/08/2023 2:00 PM FINDINGS: Bones/joints: Normal. No acute fracture. Soft tissues: Normal. Organs: IUD projects within the pelvis. XR/XR sacrum coccyx min 2V [id number] IMPRESSION: No acute findings.
== END 2023-01-08 13:15 | disposition home or self-care (01) ==
PROVIDERS: PCP Family Medicine; Visit Provider Physician Assistant
DX: S32.10XA Unspecified fracture of sacrum, initial encounter for closed fracture (principal); X58.XXXA Exposure to other specified factors, initial encounter; M53.3 Sacrococcygeal disorders, not elsewhere classified; M25.561 Pain in right knee; M71.21 Synovial cyst of popliteal space [Baker], right knee
CPT/HCPCS: 72195; 72220; 73721; J1100; J1885

== ENCOUNTER → 2023-02-28 07:41 | Outpatient (BNVA) | payer BC, MEDICAID, SELFPAY ==
[2022-09-23 14:33] VITALS: BP 121/87; BMI 29.0
== END ==
PROVIDERS: PCP Family Medicine; Visit Provider Student in an Organized Health Care Education/Training Program
DX: G56.01 Carpal tunnel syndrome, right upper limb
CPT/HCPCS: 73130

== ENCOUNTER 2023-03-18 09:30 | Emergency (ER) | payer BC, MEDICAID, SELFPAY ==
[2022-09-23 14:33] VITALS: BP 121/87; BMI 29.0
[2023-03-18 09:45] VITALS: BMI 28.0
[2023-03-18 09:49] VITALS: BP 120/86; PULSE 77; RESP 16; TEMP 36.7; O2SAT 99
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
[2023-03-18 10:28] LABS: Basophils # 0.1 10^3/uL (0.0-0.1); Basophils % 0.8 %; Eosinophils # 0.3 10^3/uL (0.0-0.8); Eosinophils % 3.5 %; Hematocrit 40.8 % (37.0-47.0); Hemoglobin 13.3 g/dL (11.5-15.3); Lymphocytes # 1.8 10^3/uL (0.8-4.8); Lymphocytes % 22.9 %; Mean Corpuscular HGB Conc 32.6 g/dL (30.0-36.0); Mean Corpuscular Hemoglobin 30.9 pg (28.0-34.0); Mean Corpuscular Volume 94.9 fl (81-99); Mean Platelet Volume 11.8 fL (7.4-10.4); Monocytes # 0.8 10^3/uL (0.2-0.9); Monocytes % 10.1 %; Neutrophils # 4.94 10^3/uL (1.8-7.7); Neutrophils % 62.3 %; Nucleated Red Blood Cells % 0 %; Platelet Count 259 10^3/cmm (130-400); Red Cell Distribution Width 12.4 % (12.1-15.1); White Blood Count 7.9 10^3/uL (4.0-10.0)
[2023-03-18 10:31] LABS: Glucose Urine UA Norm (Normal); Ketones Urine Negative (Negative); Protein Urine Neg (Negative); Urine Appearance Cloudy (CLEAR); Urine Color Yellow (Yellow); pH Urine 9 (5-7)
--- NOTE | 2023-03-18 10:31 | US_ITS ---
WS: [id number] RIGHT UPPER QUADRANT ULTRASOUND HISTORY: evaluation of RUQ bulge COMPARISON: None available. Liver: 12.1 cm in length. Normal size liver and echogenicity. No bile duct dilatation or mass. Portal Vein: Normal hepatopetal flow with monophasic waveform. Gallbladder: Normally distended gallbladder with no stones or wall thickening. CBD: 0.3 cm Pancreas: Normal size and echogenicity. Right kidney: 8.1 cm in length. Normal size and echogenicity. No hydronephrosis or mass. Aorta and IVC: Unremarkable abdominal aorta and IVC. No ascites. IMPRESSION: Normal RIGHT upper quadrant ultrasound.
[2023-03-18 10:32] LABS: Add Urine Microscopic? YES; Bilirubin Urine Neg (Negative); Blood Urine Neg (Negative); Leukocyte Esterase Urine Negative (Negative); Nitrate Urine Positive (Negative); Urobilinogen Urine Norm (Negative)
[2023-03-18 10:36] LABS: Sulfosalicylic Acid Urine Negative (Negative)
[2023-03-18 10:38] LABS: RBC Urine 0-4 /hpf (0-2)
[2023-03-18 10:39] LABS: Bacteria Urine 1+ /hpf; Squamous Epithelial Cell Urine 0-4 /hpf (0-5); WBC Urine 0-4 /hpf (0-5)
[2023-03-18 10:42] LABS: Alanine Aminotransferase 15 U/L (0-33); Albumin Level 4.6 g/dL (3.5-5.2); Alkaline Phosphatase 125 U/L (35-105); Anion Gap 13.8 (5-19); Aspartate Amino Transferase 17 U/L (0-32); Blood Urea Nitrogen 12 mg/dL (6-20); Calcium 9.3 mg/dL (8.5-10.5); Carbon Dioxide 22 mmol/L (22-29); Chloride 106 mmol/L (98-107); Glomerular Filtration Rate 62.1 mL/min (90-130); Glucose 91 mg/dL (65-115); HCG, Serum Qual Negative (Negative); Lipase 201 U/L (13-60); Osmolality Calculated 285 mOsm/kg (285-295); Potassium 3.8 mmol/L (3.5-5.1); Sodium 138 mmol/L (136-145); Total Bilirubin 0.2 mg/dL (0.15-1.2); Total Protein 7.6 g/dL (6.6-8.7)
== END 2023-03-18 11:59 | disposition home or self-care (01) ==
PROVIDERS: Emergency Provider Physician Assistant; PCP Family Medicine
DX: Z03.89 Encounter for observation for other suspected diseases and conditions ruled out (principal); R74.8 Abnormal levels of other serum enzymes; I10 Essential (primary) hypertension
CPT/HCPCS: 76705; 80053; 81001; 83690; 84703; 85025; 99284

== ENCOUNTER 2023-03-22 12:42 | Emergency (ER) | payer BC, MEDICAID, SELFPAY ==
[2022-09-23 14:33] VITALS: BP 121/87; BMI 29.0
[2023-03-22 12:46] VITALS: BP 122/87; PULSE 71; RESP 15; TEMP 36.8; O2SAT 100
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
== END 2023-03-22 14:07 | disposition home or self-care (01) ==
PROVIDERS: Emergency Provider Emergency Medicine; PCP Family Medicine
DX: F41.0 Panic disorder [episodic paroxysmal anxiety] (principal); F32.A Depression, unspecified; F41.9 Anxiety disorder, unspecified
CPT/HCPCS: 99283

== ENCOUNTER 2023-04-24 12:36 | Inpatient (IN) | payer BC, SELFPAY ==
[2022-09-23 14:33] VITALS: BP 121/87; BMI 29.0
[2023-04-24 12:38] VITALS: BP 137/101; PULSE 105; RESP 18; TEMP 36.9; O2SAT 98; BMI 26.2
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
[2023-04-24 13:35] LABS: Basophils # 0.1 10^3/uL (0.0-0.1); Basophils % 0.9 %; Eosinophils # 0.2 10^3/uL (0.0-0.8); Eosinophils % 1.8 %; Hematocrit 38.1 % (36-47); Lymphocytes # 1.6 10^3/uL (0.8-4.8); Lymphocytes % 19.9 %; Mean Corpuscular HGB Conc 33.3 g/dL (30-55); Mean Corpuscular Hemoglobin 30.8 pg (27-33); Mean Corpuscular Volume 92.5 fl (85-98); Mean Platelet Volume 11.6 fL (7.4-10.4); Neutrophils # 5.27 10^3/uL (1.8-7.7); Neutrophils % 64.2 %; Nucleated Red Blood Cells % 0 %; Platelet Count 260 10^3/cmm (157-399); Red Blood Count 4.12 10^6/uL (3.85-5.65); Red Cell Distribution Width 12.3 % (12.1-15.1)
[2023-04-24 13:51] LABS: Acetaminophen 10.1 ug/mL (10-30); Alanine Aminotransferase 11 U/L (0-33); Albumin Level 4.7 g/dL (3.5-5.2); Alkaline Phosphatase 124 U/L (35-105); Anion Gap 14.4 (5-19); Aspartate Amino Transferase 13 U/L (0-32); Blood Urea Nitrogen 21 mg/dL (6-20); Carbon Dioxide 21 mmol/L (22-29); Chloride 107 mmol/L (98-107); Globulin 2.7 g/dL (1.3-4.6); Glomerular Filtration Rate 55.6 mL/min (90-130); Glucose 92 mg/dL (65-115); Osmolality Calculated 291 mOsm/kg (285-295); Potassium 3.4 mmol/L (3.5-5.1); Sodium 139 mmol/L (136-145); Total Bilirubin 0.2 mg/dL (0.15-1.2); Total Protein 7.4 g/dL (6.6-8.7)
[2023-04-24 13:52] LABS: Alcohol Level < 10 mg/dL (0-10); Salicylate < 0.3 mg/dL (3-10)
[2023-04-24 14:14] LABS: Add Urine Microscopic? YES; Bilirubin Urine 1+ (Negative); Blood Urine 2+ (Negative); Glucose Urine UA Norm (Normal); Ketones Urine 1+ (Negative); Leukocyte Esterase Urine 2+ (Negative); Nitrate Urine Negative (Negative); Protein Urine 1+ (Negative); Specific Gravity, Urine 1.025 (1.005-1.030); Urine Appearance SL Hazy (CLEAR); Urine Color Yellow (Yellow); Urobilinogen Urine 1 mg/dL (Negative); pH Urine 5 (5-7)
[2023-04-24 14:15] LABS: Bacteria Urine 1+ /hpf; Calcium Oxalate Crystals Urine 0-4 /hpf; Mucus Urine 2+ /hpf; Squamous Epithelial Cell Urine 0-4 /hpf (0-5)
[2023-04-24 14:16] LABS: Add Urine Culture? Yes; Hyaline Casts Urine RARE /lpf
[2023-04-24 14:18] LABS: Amphetamines Screen Urine Negative (Negative); Barbiturates Screen Urine Negative (Negative); Benzodiazepines Screen Urine Negative (Negative); Cocaine Screen Urine Negative (Negative); Opiate Screen Urine Positive (Negative); PCP Screen Urine Negative (Negative); THC Screen Urine Positive (Negative)
[2023-04-24 15:54] VITALS: BP 103/70; PULSE 83; RESP 16; O2SAT 100
[2023-04-24 17:39] VITALS: BP 112/78; PULSE 96; RESP 18; TEMP 36.5; O2SAT 100
[2023-04-24 17:48] VITALS: BP 112/78; PULSE 96; RESP 18; O2SAT 100
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
[2023-04-24] MEDS: hyDROXYzine 25 mg Capsule 50 MG PO (19:59)
[2023-04-24 20:10] VITALS: BP 120/80; PULSE 91; RESP 16; TEMP 36.3; O2SAT 100
[2023-04-25 06:00] VITALS: BP 92/59; PULSE 78; RESP 16; TEMP 37; O2SAT 99
[2023-04-25] MEDS: blistex lip oint 7 gm Tube 1 APPLIC TOPICAL (08:46)
[2023-04-25 14:00] VITALS: BP 128/85; PULSE 96; RESP 16; TEMP 36.9; O2SAT 100
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
[2023-04-25] MEDS: hyDROXYzine 25 mg Capsule 50 MG PO ×2 (14:35→21:25)
[2023-04-25] MEDS: ibuprofen 600 mg Tablet PO (17:38)
[2023-04-25 19:51] VITALS: BP 124/84; PULSE 17; RESP 17; TEMP 37.2; O2SAT 99
[2023-04-25] MEDS: trazodone 50 mg Tablet PO (21:26)
[2023-04-26 06:00] VITALS: BP 97/61; PULSE 80; RESP 18; TEMP 37.1; O2SAT 98
[2023-04-26] MEDS: ibuprofen 600 mg Tablet PO ×2 (11:06→18:07)
[2023-04-26] MEDS: duloxetine 60 mg Capsule 120 MG PO (11:06)
[2023-04-26 13:22] VITALS: BP 113/82; PULSE 108; RESP 16; TEMP 37.3; O2SAT 98
[2023-04-26] MEDS: hyDROXYzine 25 mg Capsule 50 MG PO ×2 (14:20→21:24)
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
[2023-04-26 20:30] VITALS: BP 112/75; PULSE 87; RESP 16; TEMP 37.2; O2SAT 99
[2023-04-26] MEDS: trazodone 50 mg Tablet PO (21:24)
[2023-04-26] MEDS: topiramate 100 mg Tablet PO (21:24)
[2023-04-26] MEDS: calcium carbonate 500 mg Chew Tablet PO (22:21)
[2023-04-27 06:00] VITALS: BP 91/60; PULSE 64; RESP 16; TEMP 36.9; O2SAT 97
[2023-04-27] MEDS: topiramate 100 mg Tablet PO (10:00)
[2023-04-27] MEDS: duloxetine 60 mg Capsule 120 MG PO (10:00)
[2023-04-27] MEDS: buPROPion XL (24 HR) 300 mg Tablet PO (10:00)
[2023-04-27] MEDS: ibuprofen 600 mg Tablet PO ×2 (12:30→20:30)
--- NOTE | 2023-04-27 12:32 | P.NPUPN_ITS ---
Subjective NPU Subjective: 37-year-old white female with a history of depression PTSD and ADHD who reported past sensitivity to stimulant medications. Patient continued to complain about her anxiety. She stated that she had struggles with depression and also stated that she had frequent mood swings. She had reported having poor frustration tolerance. She had also complained about having problems with binge eating problems. Patient had reported odd paradoxical responses to certain medications including Vistaril. She had continued to endorse that she had many problems and stated that she often struggled with remembering what to do when she was put in a stressful situation at home as she had reported that her symptoms of ADHD had prevented her from being able to recall the steps necessary to calm herself d own. Patient had appeared to be somewhat forthcoming regarding her multiple psychiatric issues. She had not endorsed any PTSD related symptoms today. Mental Status Exam MSE Comments: This is a well-nourished well-developed white female in hospital scrubs with adequate grooming and eye contact. No abnormal movements except for mild psychomotor retardation. Cooperative with exam in moderate distress with numerous complaints reported. Speech was normal in rate and normal in volume. Mood described as anxious. Affect was restricted in range. Thought process was organized. Thought content: Patient denied suicidal or homicidal ideation today. There are no delusions reported or noted, she denied any auditory or visual hallucination. Her attention span was poor. Her recent and remote memory were grossly intact and memory was mostly reliable but none were formally tested. She is alert and oriented x3. Insight was limited. Her judgment appear limited. Impulse control appears impaired. Vitals/I&O/Wt Last Vital Signs Temp 98.4 F 04/27/23 06:00 Pulse 64 04/27/23 06:00 Resp 16 04/27/23 06:00 BP 91/60 04/27/23 06:00 Pulse Ox 97 04/27/23 06:00 O2 Del Method Room Air 04/26/23 06:00 Weight last 48 hrs Weight 67.631 kg Data NPU 04/24/23 13:28 04/24/23 13:28 Micro: Microbiology 04/24/23 13:41 Urine Culture - Final Urine,Clean Catch Microbiology 04/24/23 13:41 Urine,Clean Catch Urine Culture - Final A&P Assessment and plan (1) Major depressive disorder, severe: (2) Suicidal ideation: (3) History of ADHD: (4) Anxiety disorder, unspecified: Qualifiers: Anxiety disorder type: unspecified anxiety disorder Qualified Code(s): F41.9 - Anxiety disorder, unspecified (5) PTSD (post-traumatic stress disorder): Plan A 37-year-old white female with a long history of mental health issues and a previous hospitalization almost exactly 1 year ago who presented with feeling overwhelmed after a court date yesterday reporting that she is taking her medications but they are not working and she is not sure what to do. 1. Continue medication. Continue Cymbalta at 120 mg daily, Wellbutrin xl reduction to 150mg in am and continued Reduction in topamax to 50mg bid (side effect of cognitive impairment with this medication is less than optimal given her symptoms-it may be of benefit to simplify her medication regimen.) 2. Continue every 15 minute checks for safety. 3. Encourage individual, group and milieu therapy. 4. We will explore possible changes with mood stabilizers and also consider whether this represents cluster B pathology. Involuntary Hold Information 96 Hour Hold: 96 Hour Involuntary Admission: No Attestations NPU Medical Necessity Statement*: Inpatient hospitalization is medically necessary and the clinically appropriate intervention at this time. We will monitor medications and make changes as indicated. Her likely length of stay is 3 to 5 days. Coding Level of Care Code Acute Code for [facility] Diagnoses Major depressive disorder, severe F32.2 Suicidal ideation R45.851 History of ADHD Z86.59 Anxiety disorder, unspecified F41.9 Anxiety disorder type: unspecified anxiety disorder PTSD (post-traumatic stress disorder) F43.10
[2023-04-27] MEDS: cetirizine 10 mg Tablet PO (13:15)
[2023-04-27 14:00] VITALS: BP 111/76; PULSE 78; RESP 16; TEMP 37.2; O2SAT 100
[2023-04-27] MEDS: hyDROXYzine 25 mg Capsule 50 MG PO (18:06)
[2023-04-27 20:14] VITALS: BP 98/62; PULSE 83; RESP 16; TEMP 36.9; O2SAT 96
[2023-04-27] MEDS: topiramate 100 mg Tablet 50 MG PO (20:17)
[2023-04-27] MEDS: trazodone 50 mg Tablet PO (20:17)
[2023-04-27] MEDS: OLANZapine 5 mg ODT PO (20:29)
[2023-04-28] MEDS: buPROPion XL (24 HR) 150 mg Tablet PO (05:59)
[2023-04-28 06:00] VITALS: BP 95/66; PULSE 69; RESP 16; TEMP 36.9; O2SAT 96
[2023-04-28] MEDS: cetirizine 10 mg Tablet PO (08:18)
[2023-04-28] MEDS: topiramate 100 mg Tablet 50 MG PO (08:18)
[2023-04-28] MEDS: duloxetine 60 mg Capsule 120 MG PO (08:18)
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
[2023-04-28 13:29] VITALS: BP 95/66; PULSE 69; RESP 16; TEMP 36.9; O2SAT 96
[2023-04-28 14:00] VITALS: BP 104/69; PULSE 85; RESP 16; TEMP 36.6; O2SAT 99
== END 2023-04-28 16:40 | disposition home or self-care (01) | DRG 882 ==
LOC: ER 15:03 → NP 17:17
PROVIDERS: Admitting Provider Psychiatry & Neurology Psychiatry; Emergency Provider Family Medicine; PCP Family Medicine; Visit Provider Psychiatry & Neurology Psychiatry
DX: F43.10 Post-traumatic stress disorder, unspecified (principal); R45.851 Suicidal ideations; F32.A Depression, unspecified; F90.9 Attention-deficit hyperactivity disorder, unspecified type; Z62.811 Personal history of psychological abuse in childhood; F41.9 Anxiety disorder, unspecified
CPT/HCPCS: 36415; 80053; 80306; 80307; 81001; 85025; 87086; 97150; 97165; 99285

== ENCOUNTER → 2023-05-12 16:37 | Outpatient (BNVA) | payer BC, MEDICAID, SELFPAY ==
[2022-09-23 14:33] VITALS: BP 121/87; BMI 29.0
== END ==
PROVIDERS: PCP Family Medicine; Visit Provider Family Medicine
DX: J06.9 Acute upper respiratory infection, unspecified (principal); Z11.52 Encounter for screening for COVID-19
CPT/HCPCS: 87426

== ENCOUNTER → 2023-06-03 17:08 | Outpatient (BNVA) | payer BC, MEDICAID, SELFPAY ==
[2022-09-23 14:33] VITALS: BP 121/87; BMI 29.0
== END ==
PROVIDERS: PCP Family Medicine; Visit Provider Family Medicine
DX: R10.11 Right upper quadrant pain (principal)
CPT/HCPCS: 80053; 80061; 81000; 83690

== ENCOUNTER 2023-08-19 14:13 | Outpatient (CLI) | payer BC, SELFPAY ==
[2022-09-23 14:33] VITALS: BP 121/87; BMI 29.0
--- NOTE | 2023-08-19 14:30 | CT_ITS ---
WS: [id number] CT ABDOMEN WITHOUT CONTRAST HISTORY: abdominal nodules Contiguous single phase 5 mm axial imaging performed to the abdomen. Oral contrast has not been provi ded. Coronal and sagittal reformats are submitted. All CT scans at [facility] use at least on e of these dose optimization techniques: automated exposure control; mA and/or kV adjustment per dick ent size (includes targeted exams where dose is matched to clinical indication); or iterative reconst ruction. IV CONTRAST: None Oral contrast: No DLP: 205.04 mGy.cm COMPARISON: RIGHT upper quadrant ultrasound 03/18/2023 Lower thorax: Lung bases are clear. Heart is normal size. No hiatal hernia. Liver/biliary system: Normal size with no intrahepatic dilatation. Gallbladder: The gallbladder is very difficult to identify and may be contracted. Pancreas: On this unenhanced exam no abnormality. Spleen: Normal size spleen. No mass or infarct. Adrenal glands: Normal. Right kidney: Normal. Left kidney: Normal size. Nonobstructive 2 mm central calcification. Aorta: Normal. Lymphadenopathy: None. Free fluid: None. GI tract: There is marked distention of the stomach with food products and air. There is significant distention through the antrum, pylorus and proximal duodenum. The proximal duodenum is markedly dilat ed. The visualized small bowel otherwise is normal caliber. The visualized colon within the abdomen d emonstrates significant fecal retention and constipation. Abdominal wall: Unremarkable abdominal wall. No hernia. Visualized osseous structures: Unremarkable. IMPRESSION: 1. There is marked distention of the stomach and duodenal C-loop with food products and air. Conside r gastroparesis and partial outlet obstruction as possible etiologies. 2. The visualized colon noted through the upper abdomen demonstrates marked constipation. 3. Gallbladder is not identified and may be contracted. The dilated duodenal C-loop is causing displ acement of the structures in the RIGHT upper quadrant.
== END 2023-08-19 14:14 | disposition home or self-care (01) ==
LOC: RAD 14:13
PROVIDERS: PCP Family Medicine; Visit Provider Family Medicine
DX: R10.11 Right upper quadrant pain (principal); K59.00 Constipation, unspecified
CPT/HCPCS: 74150

== ENCOUNTER 2023-08-21 11:54 | Outpatient (CLI) | payer BC, SELFPAY ==
[2022-09-23 14:33] VITALS: BP 121/87; BMI 29.0
--- NOTE | 2023-08-21 14:06 | OP.DCCON ---
Reason for Visit: Z68.26 - Body mass index [BMI] 26.0-26.9, adult Person Interviewed: Patient Medical History, Labs and Background: Gege was pleasant but a bit scattered in sharing how best I could be of help. She mentioned having ADHD and therefore needing simple goals and even simple recipes because she gets easily overwhelmed. PMH of delayed gastric emptying, chronic constipation, gas and bloating, stg 2 CKD, and weight gain were the other issues mentioned. Height: 5 ft 2 in Weight: 150 lb BMI: 27.5 kg/m2 (overweight category) IBW: Gege mentioned 120lbs, her high school weight, but I suggested 135lbs Weight History: She said it is easy for her to both gain and lose weight. Because 120lbs was her high school weight, I suggested 135lbs as it would be a 10% wt loss which has many benefits and is more realistic. Concerns and Goals: Because 120lbs was her high school weight, I suggested 135lbs as it would be a 10% wt loss which has many benefits and is more realistic. We decided our other focus would be the issues with gastric emptying and constipation. Sleep Hygiene: Gege reported her sleep as irregular. When she wakes up at night she walks around or watches TV or stares into space. Physical Activity: The cold weather dampens her enthusiasm for activity, but when it is warm she likes the water and especially kayaking. GI Symptoms: Constipation Other Feeding Issues: The week before her period she is more prone to bingeing, but then she also said when she is backed up she doesn't want to eat as much. Food Allergies and Sensitivities: She only likes milk with cookies, but otherwise said she feels bloated after she drinks milk. 24 Hour Recall: Breakfast Time: 6-7am black coffee, cereal w/milk Snack Time: Lunch Time: 2pm Leftovers Snack Time: Dinner Time: 7-8pm [employer] - Big Mac plus Chx Nuggets, + some fries and shared a drink. Snack Time: Eating Out: When asked how often she eats out, Gege laughed and said too much and quantified it as 2x/week. Soda vs Milk vs Water: She will have an occasional coffee or milk and isn't fond of water. Additional Comments: Gege mentioned that cooking overwhelms her and that of late I haven't been cooking and have made mostly freezer dinners like pizza or fries or nuggets . She also said if she cooks it has to be simple...and that she likes soups. When asked about snacks she listed Chips Ahoy cookies, chips and salsa, dark chocolate, snack cakes and oatmeal bars. Recommendations: Assessment: Gege struggles with organizing and planning and cooking - she gets overwhelmed easily and so resorts to eating out or frozen meals. Constipation and gastroparesis and CKD stg 2 are opposing issues that make eating difficult. Her boyfriend offers some support and might help her plan and shop so that she has better food choices at home. She also wants to lose weight, but I suggested focusing on the constipation and gastroparesis first as that could lead to some weight loss. Diagnosis: Altered GI function r/t gastroparesis and constipation AEB infrequent BM and issues with bloating and gas. Intervention: We discussed a handout on gastroparesis and nutrition, focusing on low fat foods, increased water intake and smaller more frequent meals. She had mentioned she would be taking Dulcolax and Miralax so we talked about enough fluids and electrolyte replacement via Gatorade or a homemade Gatorade-like recipe that I gave her. Because eating out and eating frozen foods can be high in fat and sodium and therefore counterproductive, we talked about cooking and found 2 recipes which I printed out for her to try and make at home. Throughout our discussion/interview, Gege was concerned about weight loss and I kept steering her back to addressing her health concerns. Monitoring and Evaluation: At the bottom of the goal sheet given to her are my email and office number/extension for follow-up questions or concerns. Compliance will be difficult because if she feels overwhelmed, she will resort to frozen and pre-prepared foods or fast food. Even after our discussion - and she thanked me for it - she asked where is the best fast food place. Coding Level of Care Code Nutrition/Individ/Init 60 min Time Spent (min) 60
--- NOTE | 2023-08-27 11:01 | OP.DCCON ---
Reason for Visit: Z68.26 - Body mass index [BMI] 26.0-26.9, adult 24 Hour Recall: Breakfast Time: Snack Time: Lunch Time: Snack Time: Dinner Time: Snack Time: Coding Level of Care Code Nutrition/Individ/Init 60 min
== END 2023-08-21 11:55 | disposition home or self-care (01) ==
LOC: DIET 11:55
PROVIDERS: PCP Family Medicine; Visit Provider Family Medicine
DX: Z68.26 Body mass index [BMI] 26.0-26.9, adult (principal); F90.9 Attention-deficit hyperactivity disorder, unspecified type; K30 Functional dyspepsia
CPT/HCPCS: 97802

== ENCOUNTER 2023-09-03 15:29 | Outpatient (CLI) | payer BC, MEDICAID, SELFPAY ==
[2022-09-23 14:33] VITALS: BP 121/87; BMI 29.0
[2023-09-03 15:44] LABS: Basophils # 0.1 10^3/uL (0.0-0.1); Eosinophils # 0.2 10^3/uL (0.0-0.8); Eosinophils % 2.1 %; Hematocrit 38.8 % (36-47); Lymphocytes # 2.6 10^3/uL (0.8-4.8); Lymphocytes % 36.4 %; Mean Corpuscular HGB Conc 32.7 g/dL (30-55); Mean Corpuscular Hemoglobin 30.2 pg (27-33); Mean Corpuscular Volume 92.2 fl (85-98); Mean Platelet Volume 11.1 fL (7.4-10.4); Monocytes # 0.7 10^3/uL (0.2-0.9); Monocytes % 9.8 %; Neutrophils # 3.56 10^3/uL (1.8-7.7); Neutrophils % 50.1 %; Nucleated Red Blood Cells % 0 %; Platelet Count 282 10^3/cmm (157-399); Red Blood Count 4.21 10^6/uL (3.85-5.65); Red Cell Distribution Width 12.3 % (12.1-15.1); White Blood Count 7.11 10^3/uL (3.29-11.43)
[2023-09-03 16:05] LABS: Anion Gap 14.5 (5-19); Blood Urea Nitrogen 13 mg/dL (6-20); Calcium 9.4 mg/dL (8.5-10.5); Carbon Dioxide 24 mmol/L (22-29); Chloride 104 mmol/L (98-107); Glomerular Filtration Rate 79.9 mL/min (90-130); Glucose 98 mg/dL (65-115); Osmolality Calculated 288 mOsm/kg (285-295); Potassium 3.5 mmol/L (3.5-5.1); Sodium 139 mmol/L (136-145)
== END 2023-09-03 15:30 | disposition home or self-care (01) ==
LOC: LAB 15:31
PROVIDERS: PCP Family Medicine; Visit Provider Surgery Plastic and Reconstructive Surgery
DX: F32.A Depression, unspecified (principal); N28.89 Other specified disorders of kidney and ureter
CPT/HCPCS: 36415; 80048; 85025

== ENCOUNTER → 2023-09-22 11:58 | Outpatient (BNVA) | payer OTHER, SELFPAY ==
[2022-09-23 14:33] VITALS: BP 121/87; BMI 29.0
== END ==
PROVIDERS: PCP Family Medicine; Visit Provider Nurse Practitioner Psychiatric/Mental Health
DX: F90.2 Attention-deficit hyperactivity disorder, combined type (principal)
CPT/HCPCS: 80061; 83036

== ENCOUNTER 2024-01-26 13:48 | Inpatient (IN) | payer SELFPAY ==
[2023-09-26 16:14] VITALS: BP 115/70; BMI 26.6
[2024-01-26 13:49] VITALS: BP 116/83; PULSE 83; RESP 16; TEMP 36.8; O2SAT 98; BMI 25.6
[2024-01-26 14:19] LABS: HCG Qualitative Urine. Negative (Negative)
[2024-01-26 14:28] LABS: Basophils # 0.1 10^3/uL (0.0-0.1); Eosinophils # 0.1 10^3/uL (0.0-0.8); Eosinophils % 1.9 %; Hematocrit 37.5 % (36-47); Lymphocytes % 31.4 %; Mean Corpuscular HGB Conc 33.9 g/dL (30-55); Mean Corpuscular Hemoglobin 30.4 pg (27-33); Mean Corpuscular Volume 89.7 fl (85-98); Mean Platelet Volume 11.2 fL (7.4-10.4); Monocytes # 0.6 10^3/uL (0.2-0.9); Monocytes % 8.9 %; Neutrophils # 3.55 10^3/uL (1.8-7.7); Neutrophils % 56.3 %; Nucleated Red Blood Cells % 0 %; Platelet Count 258 10^3/cmm (157-399); Red Blood Count 4.18 10^6/uL (3.85-5.65); Red Cell Distribution Width 12.8 % (12.1-15.1)
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
[2024-01-26 14:50] LABS: Acetaminophen 8.4 ug/mL (10-30); Alanine Aminotransferase 11 U/L (0-33); Albumin Level 4.4 g/dL (3.5-5.2); Alkaline Phosphatase 112 U/L (35-105); Anion Gap 15.9 (5-19); Aspartate Amino Transferase 16 U/L (0-32); Blood Urea Nitrogen 12 mg/dL (6-20); Calcium 9.2 mg/dL (8.5-10.5); Carbon Dioxide 20 mmol/L (22-29); Chloride 108 mmol/L (98-107); Creatinine Clr Calc Pharmacy 82.6622; Glomerular Filtration Rate 79.9 mL/min (90-130); Glucose 92 mg/dL (65-115); Osmolality Calculated 289 mOsm/kg (285-295); Potassium 3.9 mmol/L (3.5-5.1); Sodium 140 mmol/L (136-145); Total Bilirubin 0.4 mg/dL (0.15-1.2); Total Protein 7.4 g/dL (6.6-8.7)
[2024-01-26 14:53] LABS: Alcohol Level < 10 mg/dL (0-10); Salicylate < 0.3 mg/dL (3-10)
[2024-01-26 15:13] LABS: Amphetamines Screen Urine Negative (Negative); Barbiturates Screen Urine Negative (Negative); Benzodiazepines Screen Urine Negative (Negative); Cocaine Screen Urine Negative (Negative); Opiate Screen Urine Negative (Negative); PCP Screen Urine Negative (Negative); THC Screen Urine Positive (Negative)
[2024-01-26 15:34] VITALS: BP 117/84; PULSE 84; RESP 16; TEMP 36.4; O2SAT 100
[2024-01-26] MEDS: hyDROXYzine 25 mg Capsule 50 MG PO (16:50)
[2024-01-26] MEDS: acetaminophen 325 mg Tablet 650 MG PO (16:50)
[2024-01-26] MEDS: topiramate 25 mg Tablet PO (21:01)
[2024-01-26] MEDS: trazodone 100 mg Tablet PO (21:01)
[2024-01-26 22:00] VITALS: BP 118/81; PULSE 105; RESP 17; TEMP 36.6; O2SAT 98
[2024-01-27 06:00] VITALS: BP 100/61; PULSE 79; RESP 16; O2SAT 98
[2024-01-27] MEDS: fluoxetine 20 mg Capsule PO (09:05)
[2024-01-27] MEDS: acetaminophen 325 mg Tablet 650 MG PO ×3 (09:05→20:17)
[2024-01-27] MEDS: topiramate 25 mg Tablet PO ×2 (09:05→20:18)
--- NOTE | 2024-01-27 09:13 | PC.NURSE ---
During morning assessment, patient states that she is experiencing moderate anxiety and is feeling agitated about some staff. denies SI, HI, AVH.
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
[2024-01-27] MEDS: calcium carbonate 500 mg Chew Tablet 1000 MG PO ×2 (12:43→18:28)
[2024-01-27 13:51] VITALS: BP 124/82; PULSE 80; RESP 16; TEMP 36.9; O2SAT 99
[2024-01-27] MEDS: OLANZapine 5 mg ODT PO (13:57)
[2024-01-27 19:36] VITALS: BP 118/83; PULSE 77; RESP 19; TEMP 36.7; O2SAT 98
[2024-01-27] MEDS: hyDROXYzine 25 mg Capsule 50 MG PO (20:17)
[2024-01-27] MEDS: trazodone 100 mg Tablet PO (20:17)
[2024-01-27] MEDS: pantoprazole DR 40 mg Tablet PO (21:47)
[2024-01-28 06:00] VITALS: BP 97/61; PULSE 75; RESP 18; TEMP 36.7; O2SAT 96
[2024-01-28] MEDS: acetaminophen 325 mg Tablet 650 MG PO ×2 (06:41→18:40)
--- NOTE | 2024-01-28 08:42 | PC.NURSE ---
IN DAY ROOM EATING, PT STATES I SLEPT WELL AND DIDN'T HAVE ANY NIGHT TERRORS FROM MY PTSD. DENIES PAIN. PT SPEECH IS RAPID, EXCESSIVE DURING ASSESSMENT. DENIES SI/HI AND AVH AT THIS TIME. PT STATES SHE HAS NOT HAD A BM SINCE FRIDAY 5DAYS AGO. PT THEN REPORTS SHE IS SUPPOSE TO BE TAKING MIRALAX EVERYDAY. NEW ORDERS RECEIVED TO START MIRALAX 17 GRAMS PO DAILY. RATES ANXIETY /, REQUESTS VISTARIL PRN. RATES DEPRESSION 02/10, VISTARIL 50 MG GIVEN ORDERED FOR INCREASED ANXIETY. PT STATES GOAL FOR THE DAY IS I WANT TO GET A MOOD STABILIZER, I'M GLAD I I THOUGHT OF THAT, I THINK ITS REALLY GOING TO WORK. PT WAS ENCOURAGED TO SPEAK WITH DR. AYALA ABOUT ANY MEDICATION CHANGES SHE IS WANTING THE DR TO MAKE. ALL QUESTIONS ANSWERED AND SUPPORT VOICED.
[2024-01-28] MEDS: hyDROXYzine 25 mg Capsule 50 MG PO ×2 (09:17→18:40)
[2024-01-28] MEDS: fluoxetine 20 mg Capsule PO ×2 (09:17→20:54)
[2024-01-28] MEDS: atomoxetine 40 mg Capsule 80 MG PO (09:17)
[2024-01-28] MEDS: polyethylene glycol 3350 Pkt 17 gm PO (09:17)
[2024-01-28] MEDS: pantoprazole DR 40 mg Tablet PO (09:18)
[2024-01-28] MEDS: topiramate 25 mg Tablet PO (09:22)
[2024-01-28] MEDS: ibuprofen 600 mg Tablet PO ×2 (09:23→21:31)
[2024-01-28 13:59] VITALS: BP 120/82; PULSE 70; RESP 16; TEMP 36.6; O2SAT 99
--- NOTE | 2024-01-28 14:59 | P.NPUPN_ITS ---
Subjective NPU 2 Subjective: Patient presented today reporting that she is feeling okay. A long discussion about some of her challenges in relationships. She was working with the social work team all possible housing situations because of the condition of her home reporting that it has problems both structurally and with pests including rodents. She reports she is feeling some improvement with the medication but has concerns about possible need of a mood stabilizer or something. We talked about the need for her to do therapy likely DBT. She denied any side effects to medication. Mental Status Exam 2 MSE Comments: This is a well-nourished well-developed white female in hospital scrubs with adequate grooming and eye contact. No abnormal movements except for mild psychomotor retardation. Cooperative with exam in mild distress. Speech was normal rate and decreased volume. Mood described depressed and overwhelmed, Affect congruent and tearful. Thought process organized. Thought content: Patient endorsed suicidal but denied homicidal ideation, there are no delusions reported or noted, she denied any auditory or visual hallucinations attention. Attention and concentration appeared intact and memory was mostly reliable but none were formally tested. She is alert and oriented x3. Insight and judgment appear limited impulse control appears impaired. Vitals/I&O/Wt Last Vital Signs Temp 97.8 F 01/28/24 13:59 Pulse 70 01/28/24 13:59 Resp 16 01/28/24 13:59 BP 120/82 01/28/24 13:59 Pulse Ox 99 01/28/24 13:59 O2 Del Method Room Air 01/28/24 06:00 Data NPU 01/26/24 14:22 01/26/24 14:22 A&P Assessment and plan (1) History of ADHD: (2) Major depressive disorder, severe: (3) Suicidal ideation: (4) Anxiety disorder, unspecified: Qualifiers: Anxiety disorder type: unspecified anxiety disorder Qualified Code(s): F41.9 - Anxiety disorder, unspecified (5) PTSD (post-traumatic stress disorder): (6) Adult ADHD: (7) Cluster B personality disorder: Plan A 38-year-old white female with a long history of mental health issues and previous hospitalizations the last of which was about 9 months ago with significant outpatient services with recent transitioning from Cymbalta back to Prozac with some challenges and how she is feeling leading to this hospitalization. 1. Continue current medication. Increase Prozac to 40 mg p.o. daily. Increased Strattera to 80 mg p.o. daily. Consider Wellbutrin versus a mood stabilizer if indicated. 2. Continue every 15 minute checks for safety. 3. Encourage individual, group and milieu therapy. 6. Evaluate cannabis use to make sure there is no problematic use. Involuntary Hold Information 2 96 Hour Hold: 96 Hour Involuntary Admission: No Attestations NPU 2 Medical Necessity Statement*: Inpatient hospitalization is medically necessary and the clinically appropriate intervention at this time. We will monitor medications and make changes as indicated. Likely length of stay 2-4 days Coding Level of Care Code Acute Code for Chg Fwd Diagnoses History of ADHD Z86.59 Major depressive disorder, severe F32.2 Suicidal ideation R45.851 Anxiety disorder, unspecified type F41.9 Anxiety disorder type: unspecified anxiety disorder PTSD (post-traumatic stress disorder) F43.10 Adult ADHD F90.9 Cluster B personality disorder F60.89
[2024-01-28 19:50] VITALS: BP 112/78; PULSE 79; RESP 15; TEMP 36.4; O2SAT 100
[2024-01-28] MEDS: trazodone 100 mg Tablet PO (21:31)
[2024-01-28] MEDS: OLANZapine 5 mg ODT PO (21:32)
[2024-01-29 06:00] VITALS: BP 94/61; PULSE 71; RESP 16; O2SAT 96
[2024-01-29] MEDS: fluoxetine 20 mg Capsule 40 MG PO (09:20)
[2024-01-29] MEDS: hyDROXYzine 25 mg Capsule 50 MG PO ×2 (09:20→17:04)
[2024-01-29] MEDS: atomoxetine 40 mg Capsule 80 MG PO (09:20)
[2024-01-29] MEDS: pantoprazole DR 40 mg Tablet PO (09:21)
[2024-01-29] MEDS: acetaminophen 325 mg Tablet 650 MG PO ×2 (09:21→17:04)
[2024-01-29] MEDS: topiramate 25 mg Tablet PO ×2 (09:21→21:27)
[2024-01-29] MEDS: polyethylene glycol 3350 Pkt 17 gm PO (09:21)
[2024-01-29] MEDS: bisacodyl 5 mg Tablet 10 MG PO (09:45)
--- NOTE | 2024-01-29 09:58 | PC.NURSE ---
IN DAY ROOM EATING BREAKFAST. PT REPORTS INCREASED ANXIETY, RATES 6/10. RATES DEPRESSION 6/10. PT IS NOTED TO HAVE RAPID, INCREASED, PRESSURED SPEECH. DENIES SI/HI AND AVH AT THIS TIME. PT STATES GOAL FOR THE DAY IS TO GET STARTED ON WELBUTRIN AND TALK DR. AYALA INTO STARTING A MOOD STABILIZER. RN LISTENED TO PT FOR SEVERAL MINUTES AND REPORT SLEEPING PATTERNS, PTSD AND YELLING OUT IN MY SLEEP. PT DOES STATE THE TRAZODONE SHE TOOK LAST NIGHT WAS HELPFUL. ALL QUESTIONS ANSWERED AND SUPPORT WAS VOICED. PT WAS GIVEN VISTARIL 50 MG ORDERED FOR INCREASED ANXIETY. ALSO REPORTS NO RESULTS WITH TAKING MIRALAX YESTERDAY. NEW ORDERS RECEIVED TO START DULCULAX 10 MG PO DAILY DUE TO REPORTS OF CONSTIPATION. PT ENCOURAGED TO WALK AND INCREASE PO FLUID INTAKE. PT IS AGREEABLE. SUPPORT VOICED.
[2024-01-29] MEDS: OLANZapine 5 mg ODT PO ×2 (11:14→21:27)
[2024-01-29 14:00] VITALS: BP 123/83; PULSE 85; RESP 16; TEMP 37; O2SAT 98
--- NOTE | 2024-01-29 17:34 | P.NPUPN_ITS ---
Subjective NPU 2 Subjective: Patient presented today reporting that she is doing okay and is focused on getting a mood stabilizer. We had a long discussion about her being very focused on medications as a solution and that she needs to focus more on her own behaviors and choices and we need to make sure that when she leaves that therapy is a significant part of what is going on. She denied any side effects of medications. Mental Status Exam 2 MSE Comments: This is a well-nourished well-developed white female in hospital scrubs with adequate grooming and eye contact. No abnormal movements except for mild psychomotor retardation. Cooperative with exam in mild distress. Speech was normal rate and decreased volume. Mood described depressed and overwhelmed, Affect congruent and tearful. Thought process organized. Thought content: Patient endorsed suicidal but denied homicidal ideation, there are no delusions reported or noted, she denied any auditory or visual hallucinations attention. Attention and concentration appeared intact and memory was mostly reliable but none were formally tested. She is alert and oriented x3. Insight and judgment appear limited impulse control appears impaired. Vitals/I&O/Wt Last Vital Signs Temp 98.6 F 01/29/24 14:00 Pulse 85 01/29/24 14:00 Resp 16 01/29/24 14:00 BP 123/83 01/29/24 14:00 Pulse Ox 98 01/29/24 14:00 O2 Del Method Room Air 01/28/24 19:50 Data NPU 01/26/24 14:22 01/26/24 14:22 A&P Assessment and plan (1) History of ADHD: (2) Major depressive disorder, severe: (3) Suicidal ideation: (4) Anxiety disorder, unspecified: Qualifiers: Anxiety disorder type: unspecified anxiety disorder Qualified Code(s): F41.9 - Anxiety disorder, unspecified (5) PTSD (post-traumatic stress disorder): (6) Adult ADHD: (7) Cluster B personality disorder: Plan A 38-year-old white female with a long history of mental health issues and previous hospitalizations the last of which was about 9 months ago with significant outpatient services with recent transitioning from Cymbalta back to Prozac with some challenges and how she is feeling leading to this hospitalization. 1. Continue current medication. Increased Prozac to 40 mg p.o. daily. Increased Strattera to 80 mg p.o. daily. Start Wellbutrin XL 150 mg p.o. every morning. Patient will be allowed to continue the Zyprexa as needed after discharge. 2. Continue every 15 minute checks for safety. 3. Encourage individual, group and milieu therapy. 6. Evaluate cannabis use to make sure there is no problematic use. Involuntary Hold Information 2 96 Hour Hold: 96 Hour Involuntary Admission: No Attestations NPU 2 Medical Necessity Statement*: Inpatient hospitalization is medically necessary and the clinically appropriate intervention at this time. We will monitor medications and make changes as indicated. Likely length of stay 1-3 days Coding Level of Care Code Acute Code for Chg Fwd Diagnoses History of ADHD Z86.59 Major depressive disorder, severe F32.2 Suicidal ideation R45.851 Anxiety disorder, unspecified type F41.9 Anxiety disorder type: unspecified anxiety disorder PTSD (post-traumatic stress disorder) F43.10 Adult ADHD F90.9 Cluster B personality disorder F60.89
[2024-01-29] MEDS: trazodone 100 mg Tablet PO (21:27)
[2024-01-29 22:00] VITALS: BP 113/76; PULSE 90; RESP 16; TEMP 36.4; O2SAT 98
[2024-01-30 06:00] VITALS: BP 90/59; PULSE 78; RESP 16; TEMP 36.7; O2SAT 96
[2024-01-30] MEDS: bisacodyl 5 mg Tablet 10 MG PO (08:51)
[2024-01-30] MEDS: topiramate 25 mg Tablet PO (08:51)
[2024-01-30] MEDS: acetaminophen 325 mg Tablet 650 MG PO (08:51)
[2024-01-30] MEDS: atomoxetine 40 mg Capsule 80 MG PO (08:51)
[2024-01-30] MEDS: fluoxetine 20 mg Capsule 40 MG PO (08:51)
[2024-01-30] MEDS: polyethylene glycol 3350 Pkt 17 gm PO (08:51)
[2024-01-30] MEDS: buPROPion XL (24 HR) 150 mg Tablet PO (08:51)
--- NOTE | 2024-01-30 09:09 | PC.NURSE ---
PT CURRENTLY DENIES SI/HI/AH/VH AT THIS TIME. PT CURRENTLY ENDORSES ANXIETY RATING IT A 6/10 ON A 0-10 SCALE WHERE 0 IS NONE AND 10 IS THE WORST POSSIBLE. PT REQUESTED AND RECEIVED PRN VISTARIL 50 MG PRN. PT CURRENTLY ENDORSES DEPRESSION RATING IT A 5/10 ON THE SAME SCALE PREVIOUS. PT HAS C/O NO BOWEL MOVEMENT SINCE 01/24/24 WHICH IS 6 DAYS AGO. PT GIVEN DAILY MIRALAX AND PRN BISACODYL. PT VERBALIZED TO ALERT THIS NURSE TO BM IF ONE IS HAD. PT RUQ IS HYPOACTIVE WHILE OTHER QUADRANTS A NORMOACTIVE. PT WAS COOPERATIVE WITH ASSESSMENT AND MEDICATIONS. PT CURRENT NEEDS ARE MET AT THIS TIME.
[2024-01-30] MEDS: hyDROXYzine 25 mg Capsule 50 MG PO (09:12)
[2024-01-30] MEDS: pantoprazole DR 40 mg Tablet PO (09:33)
[2024-01-30] MEDS: OLANZapine 5 mg ODT PO (10:28)
--- NOTE | 2024-01-30 12:15 | P.NPUDS_ITS ---
Diagnoses at Discharge Discharge Diagnosis (1) History of ADHD: Status: Suspected Permanent problem details: Following information retrieved/edited from Behavior Assessment Report completed on 04/24/22: Client reports a history of ADHD Z86.59 due to trouble concentrating and staying on task. (2) Major depressive disorder, severe: Status: Chronic (3) Suicidal ideation: Status: Resolved (4) Anxiety disorder, unspecified: Status: Chronic Qualifiers: Anxiety disorder type: unspecified anxiety disorder Qualified Code(s): F41.9 - Anxiety disorder, unspecified (5) PTSD (post-traumatic stress disorder): Status: Chronic Permanent problem details: with episodes of anxiety (6) Adult ADHD: Status: Chronic (7) Cluster B personality disorder: Status: Acute Reason for Visit Reason for Visit: psych - SI Involuntary Hold Information 96 Hour Hold: 96 Hour Involuntary Admission: No Mental Status Exam MSE Comments: This is a well-nourished well-developed white female in hospital scrubs with adequate grooming and eye contact. No abnormal movements except for mild psychomotor retardation. Cooperative with exam in mild distress. Speech was normal rate and decreased volume. Mood described depressed and overwhelmed, Affect congruent and tearful. Thought process organized. Thought content: Patient endorsed suicidal but denied homicidal ideation, there are no delusions reported or noted, she denied any auditory or visual hallucinations attention. Attention and concentration appeared intact and memory was mostly reliable but none were formally tested. She is alert and oriented x3. Insight and judgment appear limited impulse control appears impaired. Discharge Data Studies Completed and Pending: Laboratory Results WBC 6.30 10^3/uL (3.2 9-11.43) 01/26/24 14:22 RBC 4.18 10^6/uL (3.8 5-5.65) 01/26/24 14:22 Hgb 12.70 g/dL (11.27 -16.99) 01/26/24 14:22 Hct 37.5 % (36-47) 01/26/24 14:22 MCV 89.7 fl (85-98) 01/26/24 14:22 MCH 30.4 pg (27-33) 01/26/24 14:22 MCHC 33.9 g/dL (30-55) 01/26/24 14:22 RDW 12.8 % (12.1-15.1 ) 01/26/24 14:22 Plt Count 258 10^3/cmm (157 -399) 01/26/24 14:22 MPV 11.2 fL (7.4-10.4 ) H 01/26/24 14:22 Neut % (Auto) 56.3 % 01/26/24 14:22 Lymph % (Auto) 31.4 % 01/26/24 14:22 [place] % (Auto) 8.9 % 01/26/24 14:22 Eos % (Auto) 1.9 % 01/26/24 14:22 Baso % (Auto) 1.0 % 01/26/24 14:22 Neut # (Auto) 3.55 10^3/uL (1.8 -7.7) 01/26/24 14:22 Lymph # (Auto) 2.0 10^3/uL (0.8- 4.8) 01/26/24 14:22 [place] # (Auto) 0.6 10^3/uL (0.2- 0.9) 01/26/24 14:22 Eos # (Auto) 0.1 10^3/uL (0.0- 0.8) 01/26/24 14:22 Baso # (Auto) 0.1 10^3/uL (0.0- 0.1) 01/26/24 14:22 Nucleated RBC % (a uto) 0 % 01/26/24 14:22 Nucleated RBCs # 0.0 /100WBC 01/26/24 14:22 Sodium 140 mmol/L (136-1 45) 01/26/24 14:22 Potassium 3.9 mmol/L (3.5-5 .1) 01/26/24 14:22 Chloride 108 mmol/L (98-10 7) H 01/26/24 14:22 Carbon Dioxide 20 mmol/L (22-29) L 01/26/24 14:22 Anion Gap 15.9 (5-19) 01/26/24 14:22 BUN 12 mg/dL (6-20) 01/26/24 14:22 Creatinine 0.8 mg/dL (0.5-0. 9) 01/26/24 14:22 GFR Calculation 79.9 mL/min (90-1 30) L 01/26/24 14:22 Glucose 92 mg/dL (65-115) 01/26/24 14:22 Calculated Osmolal ity 289 mOsm/kg (285- 295) 01/26/24 14:22 Calcium 9.2 mg/dL (8.5-10 .5) 01/26/24 14:22 Total Bilirubin 0.4 mg/dL (0.15-1 .2) 01/26/24 14:22 AST 16 U/L (0-32) 01/26/24 14:22 ALT 11 U/L (0-33) 01/26/24 14:22 Alkaline Phosphata se 112 U/L (35-105) H 01/26/24 14:22 Total Protein 7.4 g/dL (6.6-8.7 ) 01/26/24 14:22 Albumin 4.4 g/dL (3.5-5.2 ) 01/26/24 14:22 Globulin 3.0 g/dL (1.3-4.6 ) 01/26/24 14:22 HCG, Qual Negative (Negati ve) 01/26/24 14:02 Salicylates < 0.3 mg/dL (3-10 ) L 01/26/24 14:22 Urine Opiates Scre en Negative ng/mL (N egative) 01/26/24 14:02 Acetaminophen 8.4 ug/mL (10-30) L 01/26/24 14:22 Ur Barbiturates Sc reen Negative ng/mL (N egative) 01/26/24 14:02 Ur Phencyclidine S crn Negative ng/mL (N egative) 01/26/24 14:02 Ur Amphetamines Sc reen Negative ng/mL (N egative) 01/26/24 14:02 U Benzodiazepines Scrn Negative ng/mL (N egative) 01/26/24 14:02 Urine Cocaine Scre en Negative ng/mL (N egative) 01/26/24 14:02 U Marijuana (THC) Screen Positive ng/mL (N egative) H 01/26/24 14:02 Ethyl Alcohol < 10 mg/dL (0-10) 01/26/24 14:22 Vitals: Last Vital Signs Temp 98.1 F 01/30/24 06:00 Pulse 78 01/30/24 06:00 Resp 16 01/30/24 06:00 BP 90/59 01/30/24 06:00 Pulse Ox 96 01/30/24 06:00 O2 Del Method Room Air 01/30/24 06:00 Discharge Plan Discharge Patient Disposition: Home Condition: Stable Prescriptions: New pantoprazole 40 mg Tablet,Delayed Release (Dr/Ec) 40 mg PO DAILY 30 Days Qty: 30 1RF fluoxetine 20 mg Capsule 40 mg PO DAILY 30 Days Qty: 60 1RF olanzapine 5 mg Tablet,Disintegrating 5 mg PO DAILY 30 Days Qty: 30 1RF atomoxetine 40 mg Capsule 80 mg PO DAILY 30 Days Qty: 60 1RF bupropion HCl 150 mg Tablet Extended Release 24 Hr 150 mg PO DAILY 30 Days Qty: 30 1RF Continued topiramate 25 mg tablet 25 mg PO BID Qty: 120 1RF bisoprolol fumarate 5 mg tablet 2.5 mg PO QAM Qty: 90 1RF hydroxyzine pamoate 50 mg capsule 50 mg PO BID PRN (Reason: anxiety) Qty: 30 6RF Rx Instructions: Take 1 capsule, twice daily, if needed for anxiety trazodone 100 mg tablet 100 mg PO .q hs PRN (Reason: insomnia) Qty: 30 1RF Rx Instructions: Take one tablet daily at bedtime, if needed for insomnia polyethylene glycol 3350 [Miralax] 17 gram/dose powder 17 g PO TID Qty: 238 2RF fluticasone propionate [Flonase Allergy Relief] 50 mcg/actuation spray,suspension 2 spray intranasal DAILY Qty: 16 0RF Rx Instructions: administer into each nostril ParaGard T 380A 380 square mm Intrauterine Device 380 mm2 INTRAUTERINE CONT albuterol sulfate 90 mcg/actuation Hfa Aerosol Inhaler 2 puff INHALATION Q4H PRN (Reason: Shortness Of Breath Or Wheezing) Discontinued atomoxetine 60 mg capsule 60 mg PO QAM Qty: 30 1RF Rx Instructions: Take one capsule by mouth every day fluoxetine 20 mg capsule 20 mg PO .q am Qty: 30 1RF Rx Instructions: After stopping duloxetine, take one capsule once daily in the AM Discharge Orders: Discharge Order (Routine); Ordered 01/30/24 Ordered By: Cliff Sanford Referrals: [facility] [Outside] Nneka Johns MSW, [employer] [Therapist] - 02/12/24 1:45 pm Sheela Wilde APRN [Nurse Practitioner] - 02/09/24 3:15 pm Romain Lobo MD [Primary Care Provider] - Discharge Diet: Regular Discharge Activity: Resume usual activity Patient Instructions: Opioid Safety Discharge Attestations NPU Time Spent in Discharge Care*: less than 30 min Specific Discharge Activities: Specific discharge activities: educating patient, discussing with spring encaser/social workers/dc planners, documenting/other paperwork and evaluating patient/reviewing data Coding Level of Care Code Acute Code for g Fwd Diagnoses History of ADHD Z86.59 Major depressive disorder, severe F32.2 Suicidal ideation R45.851 Anxiety disorder, unspecified type F41.9 Anxiety disorder type: unspecified anxiety disorder PTSD (post-traumatic stress disorder) F43.10 Adult ADHD F90.9 Cluster B personality disorder F60.89
[2024-01-30 12:20] VITALS: BP 90/59; PULSE 78; RESP 16; TEMP 36.7; O2SAT 96
[2024-01-30 14:00] VITALS: BP 104/71; PULSE 81; RESP 16; TEMP 36.8; O2SAT 97
== END 2024-01-30 16:05 | disposition home or self-care (01) | DRG 881 ==
LOC: ER 14:46 → NP 14:49
PROVIDERS: Admitting Provider Psychiatry & Neurology Psychiatry; Emergency Provider Emergency Medicine; PCP Family Medicine; Visit Provider Psychiatry & Neurology Psychiatry
DX: F32.9 Major depressive disorder, single episode, unspecified (principal); R45.851 Suicidal ideations; F43.12 Post-traumatic stress disorder, chronic; I10 Essential (primary) hypertension; F90.9 Attention-deficit hyperactivity disorder, unspecified type; F41.9 Anxiety disorder, unspecified; F60.9 Personality disorder, unspecified
CPT/HCPCS: 36415; 80053; 80306; 80307; 81025; 85025; 97150; 97165; 99285

== ENCOUNTER → 2024-08-11 14:03 | Outpatient (BNVA) | payer MEDICAID, SELFPAY ==
[2023-09-26 16:14] VITALS: BP 115/70; BMI 26.6
== END ==
PROVIDERS: PCP Family Medicine; Visit Provider Nurse Practitioner
DX: R05.9 Cough, unspecified (principal)
CPT/HCPCS: 87400; 87426

== ENCOUNTER → 2024-09-02 10:26 | Outpatient (BNVA) | payer MEDICARE, SELFPAY ==
[2023-09-26 16:14] VITALS: BP 115/70; BMI 26.6
== END ==
PROVIDERS: PCP Family Medicine; Visit Provider Family Medicine
DX: R00.0 Tachycardia, unspecified (principal); M50.13 Cervical disc disorder with radiculopathy, cervicothoracic region
CPT/HCPCS: 80053; 81000; 84439; 84443; 85025

== ENCOUNTER → 2024-09-16 15:55 | Outpatient (BNVA) | payer MEDICARE, MEDICAID, SELFPAY ==
[2023-09-26 16:14] VITALS: BP 115/70; BMI 26.6
== END ==
PROVIDERS: PCP Family Medicine; Visit Provider Nurse Practitioner Psychiatric/Mental Health
DX: F41.9 Anxiety disorder, unspecified (principal); F60.3 Borderline personality disorder; Z79.899 Other long term (current) drug therapy
CPT/HCPCS: 80061; 83036

== ENCOUNTER 2024-09-17 15:17 | Outpatient (CLI) | payer MEDICARE, MEDICAID, SELFPAY ==
[2023-09-26 16:14] VITALS: BP 115/70; BMI 26.6
--- NOTE | 2024-09-17 15:15 | MR_ITS ---
WS: [id number] MRI CERVICAL SPINE NONCONTRAST TECHNIQUE: Sagittal T1, T2 and STIR imaging. Axial T2, gradient, and fiesta imaging. CLINICAL INFORMATION: chronic neck pain COMPARISON: 2022 FINDINGS: Straightening of the normal cervical doses. Disc bulging worse at C5-6. Cord signal is normal. C2-C3: Normal. C3-C4: Normal. C4-C5: Mild facet arthropathy. Spinal canal and foramen are patent. C5-C6: Slight anterolisthesis. Disc osteophyte protrusion with slight contact of the cervical cord. Mild facet arthropathy. Mild central canal stenosis. Mild LEFT foraminal narrowing. C6-C7: Disc osteophyte complex with slight effacement of the ventral thecal sac. Mild LEFT foraminal narrowing. Mild facet arthropathy. C7-T1: Disc osteophyte ridging. Mild LEFT and no significant RIGHT foraminal narrowing. Visualized brain stem structures: Normal. Prevertebral soft tissues: Normal. MR/MR cervical spin wo con* [id number] IMPRESSION: 1. Straightening of the normal cervical lordosis. 2. Mild central canal stenosis with disc osteophyte protrusion and slight cont act of the cervical cord. This is slightly progressed. 3. Mild LEFT C5-C6 bony foraminal narrowing. 4. Mild LEFT C6-7 bony foraminal narrowing.
== END 2024-09-17 15:18 | disposition home or self-care (01) ==
PROVIDERS: PCP Family Medicine; Visit Provider Family Medicine
DX: M50.13 Cervical disc disorder with radiculopathy, cervicothoracic region (principal); M48.02 Spinal stenosis, cervical region; R93.7 Abnormal findings on diagnostic imaging of other parts of musculoskeletal system; M47.892 Other spondylosis, cervical region; M50.222 Other cervical disc displacement at C5-C6 level; M25.78 Osteophyte, vertebrae
CPT/HCPCS: 72141

== ENCOUNTER → 2024-10-01 09:36 | Outpatient (BNVA) | payer MEDICARE, MEDICAID, SELFPAY ==
[2024-09-21 10:05] VITALS: BP 125/85; BMI 25.7
== END ==
PROVIDERS: PCP Family Medicine; Visit Provider Family Medicine
DX: N39.0 Urinary tract infection, site not specified (principal); Z20.2 Contact with and (suspected) exposure to infections with a predominantly sexual mode of transmission
CPT/HCPCS: 81000; 86592; 87491; 87591; 87661

== ENCOUNTER → 2025-01-11 08:54 | Outpatient (BNVA) | payer MEDICARE, MEDICAID, SELFPAY ==
[2024-09-21 10:05] VITALS: BP 125/85; BMI 25.7
== END ==
PROVIDERS: PCP Family Medicine; Referring Provider Nurse Practitioner Psychiatric/Mental Health; Visit Provider Psychiatry & Neurology Neurology
DX: R41.3 Other amnesia (principal); E55.9 Vitamin D deficiency, unspecified; R29.2 Abnormal reflex; M54.10 Radiculopathy, site unspecified; R40.4 Transient alteration of awareness
CPT/HCPCS: 36415; 82306; 82542; 82607; 82746; 83520; 83735; 83921; 86592; 99203

== ENCOUNTER 2025-02-02 08:02 | Outpatient (CLI) | payer MEDICARE, SELFPAY ==
[2024-09-21 10:05] VITALS: BP 125/85; BMI 25.7
--- NOTE | 2025-02-02 08:00 | MR_ITS ---
WS: [id number] MRI BRAIN WITH AND WITHOUT CONTRAST HISTORY: R41.3 - Other amnesia COMPARISON: None available. TECHNIQUE: Multiplanar imaging performed through the brain with MultiHance 15 ml's IV. No acute infarcts are seen. Ba-white matter differentiation is well preserved. No susceptibility artifacts or prior lacunar infarcts. Ventricles and extra-axial spaces are normal. Clivus and pituitary gland are normal. Visualized posterior fossa and brainstem are also normal. Postcontrast images are negative for masses or vascular malformations. Dural venous sinuses are normal. Paranasal sinuses: Well aerated with no significant disease. Mastoid air cells: Normal. Calvarium and scalp: Normal. MR/MR head wo/w con [id number] IMPRESSION: 1. Normal MRI brain with contrast. 2. No enhancing masses or vascular malformations. 3. No prior infarct.
--- NOTE | 2025-02-02 08:45 | MR_ITS ---
WS: [id number] MRI THORACIC SPINE with and without contrast HISTORY: R29.2 - Abnormal reflex COMPARISON: None available. TECHNIQUE: Multiplanar sequences are performed in sagittal and axial planes. MultiHance 15 mL. Normal thoracic alignment. Disc spaces and vertebral body heights are normal. Normal signal within the cord. No cord enlargement or atrophy. No enhancing masses. No discitis or osteomyelitis. There are a few areas of increased signal within the thoracic cord which are most likely due to motion and breathing artifact and not true lesions. No focal disc protrusions or central or foraminal stenosis. Study is limited by motion artifact. Paravertebral soft tissues are negative. MR/MR thoracic spine wo/w [id number] IMPRESSION: 1. Negative MRI thoracic spine. Mild limitation secondary to motion artifact.
--- NOTE | 2025-02-02 09:30 | MR_ITS ---
WS: [id number] MRI LUMBAR SPINE WITH AND WITHOUT CONTRAST HISTORY: R29.2 - Abnormal reflex COMPARISON: None available. TECHNIQUE: Sagittal and axial multisequence imaging is submitted. MultiHance 15 mL. Motion artifact on several sequences. Patient was claustrophobic and had a difficult time remaining still. Normal lumbar alignment with no compression fractures or marrow edema. Disc spaces and vertebral body heights are well-preserved. Conus terminates normally at L1-2 disc level. L1-L2: Normal. L2-L3: Normal. L3-L4: Mild facet joint and ligamentum flavum hypertrophy. L4-L5: Mild disc bulging with mild encroachment upon the subarticular recesses and contact on the exiting L5 nerve roots. No significant stenosis. Minimal foraminal encroachment. Mild facet joint arthritis and ligamentum flavum hypertrophy. L5-S1: Mild bilateral facet arthritis. No discitis or osteomyelitis. No enhancing masses. Nerve roots are normal. MR/MR lumbar spine wo/w con [id number] IMPRESSION: 1. No high-grade central or foraminal stenosis. 2. L4-5: Mild disc encroachment upon the subarticular recesses and the exiting L5 nerve roots. 3. Mild facet joint arthropathy at L4-5. 4. No enhancing masses. No discitis or osteomyelitis.
[2025-02-02] MEDS: gadobenate dimeglumine 20 mL vial 15 ML IV (09:55)
== END 2025-02-02 08:03 | disposition home or self-care (01) ==
LOC: RAD 08:03
PROVIDERS: PCP Family Medicine; Visit Provider Psychiatry & Neurology Neurology
DX: R41.3 Other amnesia (principal); R29.2 Abnormal reflex; M54.10 Radiculopathy, site unspecified; M47.816 Spondylosis without myelopathy or radiculopathy, lumbar region
CPT/HCPCS: 70553; 72157; 72158; A9577

== ENCOUNTER → 2025-02-24 07:55 | Outpatient (BNVA) | payer MEDICARE, SELFPAY ==
[2024-09-21 10:05] VITALS: BP 125/85; BMI 25.7
== END ==
PROVIDERS: PCP Family Medicine; Visit Provider Orthopaedic Surgery
DX: M50.222 Other cervical disc displacement at C5-C6 level (principal); M48.02 Spinal stenosis, cervical region; G99.2 Myelopathy in diseases classified elsewhere; Z01.818 Encounter for other preprocedural examination; M54.50 Low back pain, unspecified; Z20.2 Contact with and (suspected) exposure to infections with a predominantly sexual mode of transmission
CPT/HCPCS: 36415; 72110; 80053; 81001; 85025; 87491; 87591; 87661; 99204

== ENCOUNTER → 2025-03-03 09:19 | Outpatient (BNVA) | payer MEDICARE, MEDICAID, SELFPAY ==
[2024-09-21 10:05] VITALS: BP 125/85; BMI 25.7
== END ==
PROVIDERS: PCP Family Medicine; Referring Provider Psychiatry & Neurology Neurology; Visit Provider Psychiatry & Neurology Neurology
DX: R56.9 Unspecified convulsions (principal)
CPT/HCPCS: 95813; 95819

== ENCOUNTER 2025-03-09 05:36 | Day surgery (SDC) | payer MEDICARE, SELFPAY ==
[2024-09-21 10:05] VITALS: BP 125/85; BMI 25.7
[2025-03-09] VITALS (11 sets, daily range): BP systolic 82–111; BP diastolic 44–75; PULSE 63–78; RESP 16–18; TEMP 36.1–36.4; O2SAT 92–100; BMI 26.5
[2025-03-09 05:59] LABS: OR HCG Qualitative Urine Negative (Negative)
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
--- NOTE | 2025-03-09 06:41 | W.PM.OPSUD ---
Surgery/Procedure H&P Update DATE OF PROCEDURE: March 09, 2025 DATE H&P PERFORMED: 02/24/25 H&P UPDATE INFORMATION: I have reviewed H&P completed within last 30 days, I have examined patient prior to procedure and No changes to prior documentation PREOP DIAGNOSIS: Cervical stenosis with myelopathy PLANNED PROCEDURE: Operation Date: 03/09/25 07:00 Proposed Procedures p Anterior Cervical Discectomy & Fusion ACDF(Not Applicable) - Alex Ray DO
[2025-03-09] MEDS: ceFAZolin 2,000 mg SDV 2000 MG IVP (07:00)
[2025-03-09] MEDS: lidocaine-epi 1% 20 mL INJ INJECTION (07:53)
--- NOTE | 2025-03-09 08:33 | PM.OP ---
Operative Report Date of procedure: March 09, 2025 Pre-op diagnosis: Cervical stenosis with myelopathy Post-op diagnosis: same Procedure done: 1. Anterior diskectomy C5/6 2. Insertion of cage C5/6 3. Instrumentation with anterior plate from C5-C6 4. Use of allograft Surgeon: Alex Ray DO Estimated blood loss (mL): 10
[2025-03-09] MEDS: HYDROcodone-acetaminophen 10-325 mg Tablet 1 TAB PO (09:25)
--- NOTE | 2025-03-09 09:55 | ANE.PACU2 ---
Inpatient post-anesthesia follow up: Airway intact: Yes Vital signs: Temperature 97.6 F Pulse Rate 74 Respiratory Rate 16 Blood Pressure 101/68 Pulse Oximetry 99 Oxygen Delivery Me thod Room Air Oxygen Flow Rate 8 Fraction of Inspir ed Oxygen Hydration adequate: Yes Nausea and vomiting: No Pain level: 1 Mental status: Baseline
--- NOTE | 2025-03-09 10:33 | XR_ITS ---
WS: [id number] XR cervical spine 3V* [id number] REASON FOR EXAM: TAURUS PICS FINDINGS: Anterior plate and screw fixation with interbody fusion device C5-C6. Surgical appliances intact and in proper position and alignment. XR/XR cervical spine 3V* [id number] IMPRESSION: Anterior cervical fusion without abnormality as above.
== END 2025-03-09 09:56 | disposition home or self-care (01) ==
PROVIDERS: Anesthesiology; PCP Family Medicine; Visit Provider Orthopaedic Surgery
PROC: 0RB30ZZ Excision of Cervical Vertebral Disc, Open Approach (ICD-10-PCS; CPT 22551; principal; 2025-03-09 07:00)
DX: M48.02 Spinal stenosis, cervical region (principal); G95.9 Disease of spinal cord, unspecified; F41.8 Other specified anxiety disorders; J45.909 Unspecified asthma, uncomplicated; F43.12 Post-traumatic stress disorder, chronic; M41.9 Scoliosis, unspecified; I10 Essential (primary) hypertension
CPT/HCPCS: 22551; 20930; 22845; 72040; 76000; 81025; C1713; C1763; C9359; J0330; J0690; J1100; J1171; J1885; J2250; J2405; J2704; J2710; J3010; J3490; J7030; J9999

== ENCOUNTER → 2025-03-14 15:15 | Outpatient (BNVA) | payer MEDICARE, SELFPAY ==
[2024-09-21 10:05] VITALS: BP 125/85; BMI 25.7
== END ==
PROVIDERS: PCP Family Medicine; Visit Provider Obstetrics & Gynecology
DX: N92.6 Irregular menstruation, unspecified (principal); Z87.42 Personal history of other diseases of the female genital tract
CPT/HCPCS: 84146; 84439; 84443; 85025

== ENCOUNTER → 2025-03-22 08:01 | Outpatient (BNVA) | payer MEDICARE, SELFPAY ==
[2024-09-21 10:05] VITALS: BP 125/85; BMI 25.7
== END ==
PROVIDERS: PCP Family Medicine; Visit Provider Obstetrics & Gynecology
DX: Z98.890 Other specified postprocedural states (principal); N83.201 Unspecified ovarian cyst, right side; N83.202 Unspecified ovarian cyst, left side
CPT/HCPCS: 76830; 99024

== ENCOUNTER → 2025-03-31 15:24 | Outpatient (BNVA) | payer MEDICARE, SELFPAY ==
[2024-09-21 10:05] VITALS: BP 125/85; BMI 25.7
== END ==
PROVIDERS: PCP Family Medicine; Visit Provider Obstetrics & Gynecology
DX: Z01.419 Encounter for gynecological examination (general) (routine) without abnormal findings (principal)
CPT/HCPCS: 87624

== ENCOUNTER → 2025-04-07 14:34 | Outpatient (BNVA) | payer OTHER, SELFPAY ==
[2024-09-21 10:05] VITALS: BP 125/85; BMI 25.7
== END ==
PROVIDERS: PCP Family Medicine; Visit Provider Orthopaedic Surgery
DX: Z98.890 Other specified postprocedural states (principal); M54.2 Cervicalgia; Z98.1 Arthrodesis status
CPT/HCPCS: 72040

== ENCOUNTER 2025-04-15 12:53 | Outpatient (CLI) | payer MEDICARE, SELFPAY ==
[2024-09-21 10:05] VITALS: BP 125/85; BMI 25.7
--- NOTE | 2025-04-15 13:00 | MM_ITS ---
WS: [id number] BILATERAL 3D TOMOSYNTHESIS DIGITAL SCREENING MAMMOGRAPHY WITH CAD CLINICAL INFORMATION: Z12.39 - Encounter for other screening for malignant neop... HISTORY: Screening mammogram. No current complaints. COMPARISON: None. TECHNIQUE: Bilateral CC and MLO views. FINDINGS: The breasts are composed of heterogeneous fibroglandular density tissue, which can limit the detection of small underlying mass lesions. No suspicious mass, asymmetry, calcifications, or architectural distortion. No evidence of malignancy. MM/MM [facility] tomosynthesis [id number] IMPRESSION: DENSITY:The breasts are heterogeneously dense, which may obscure small masses. BI-RADS: 1 - Negative FOLLOW UP: 1 Year Follow-up Recommend return to annual screening mammography.
== END 2025-04-15 12:54 | disposition home or self-care (01) ==
LOC: RAD 12:54
PROVIDERS: PCP Family Medicine; Visit Provider Obstetrics & Gynecology
DX: Z12.31 Encounter for screening mammogram for malignant neoplasm of breast (principal); R92.333 Mammographic heterogeneous density, bilateral breasts
CPT/HCPCS: 77063; 77067

== ENCOUNTER → 2025-04-19 08:04 | Outpatient (BNVA) | payer MEDICARE, SELFPAY ==
[2024-09-21 10:05] VITALS: BP 125/85; BMI 25.7
== END ==
PROVIDERS: PCP Family Medicine; Visit Provider Orthopaedic Surgery
DX: Z98.890 Other specified postprocedural states (principal); Z98.1 Arthrodesis status
CPT/HCPCS: 72040; 99024

== ENCOUNTER → 2025-04-28 09:01 | Outpatient (BNVA) | payer MEDICARE, MEDICAID, SELFPAY ==
[2024-09-21 10:05] VITALS: BP 125/85; BMI 25.7
== END ==
PROVIDERS: PCP Family Medicine; Visit Provider Obstetrics & Gynecology
DX: R87.615 Unsatisfactory cytologic smear of cervix (principal)
CPT/HCPCS: 87624

== ENCOUNTER → 2025-05-30 09:03 | Outpatient (BNVA) | payer MEDICARE, SELFPAY ==
[2024-09-21 10:05] VITALS: BP 125/85; BMI 25.7
== END ==
PROVIDERS: PCP Family Medicine; Visit Provider Obstetrics & Gynecology
DX: R87.810 Cervical high risk human papillomavirus (HPV) DNA test positive (principal)
CPT/HCPCS: 81025; 88305

== ENCOUNTER → 2025-05-31 08:58 | Outpatient (BNVA) | payer MEDICARE, SELFPAY ==
[2024-09-21 10:05] VITALS: BP 125/85; BMI 25.7
== END ==
PROVIDERS: PCP Family Medicine; Visit Provider Orthopaedic Surgery
DX: Z98.890 Other specified postprocedural states (principal); Z98.1 Arthrodesis status
CPT/HCPCS: 72040; 99024

== ENCOUNTER → 2025-06-07 09:18 | Outpatient (BNVA) | payer MEDICARE, SELFPAY ==
[2024-09-21 10:05] VITALS: BP 125/85; BMI 25.7
== END ==
PROVIDERS: PCP Family Medicine; Visit Provider Nurse Practitioner Family
DX: M54.9 Dorsalgia, unspecified (principal); M54.50 Low back pain, unspecified; Z98.1 Arthrodesis status; G89.29 Other chronic pain
CPT/HCPCS: 99214

== ENCOUNTER → 2025-06-16 15:25 | Outpatient (BNVA) | payer OTHER, SELFPAY ==
[2024-09-21 10:05] VITALS: BP 125/85; BMI 25.7
== END ==
PROVIDERS: PCP Family Medicine; Visit Provider Obstetrics & Gynecology
DX: Z87.42 Personal history of other diseases of the female genital tract (principal)
CPT/HCPCS: 81025

== ENCOUNTER 2025-06-23 13:06 | Outpatient (RCR) | payer MEDICARE, SELFPAY ==
[2024-09-21 10:05] VITALS: BP 125/85; BMI 25.7
== END 2025-07-03 23:59 | disposition home or self-care (01) ==
LOC: GPT 13:06
PROVIDERS: PCP Family Medicine; Visit Provider Orthopaedic Surgery
DX: M43.22 Fusion of spine, cervical region (principal)
CPT/HCPCS: 97110; 97112; 97140; 97161

== ENCOUNTER → 2025-07-14 12:52 | Outpatient (BNVA) | payer MEDICARE, SELFPAY ==
[2024-09-21 10:05] VITALS: BP 125/85; BMI 25.7
== END ==
PROVIDERS: PCP Family Medicine; Visit Provider Obstetrics & Gynecology
DX: Z32.01 Encounter for pregnancy test, result positive (principal); Z71.1 Person with feared health complaint in whom no diagnosis is made; R10.11 Right upper quadrant pain
CPT/HCPCS: 80074; 86592; 87806

== ENCOUNTER 2025-07-19 14:08 | Outpatient (RCR) | payer MEDICARE, SELFPAY ==
[2024-09-21 10:05] VITALS: BP 125/85; BMI 25.7
== END 2025-08-03 23:59 | disposition home or self-care (01) ==
LOC: GPT 14:08
PROVIDERS: PCP Family Medicine; Visit Provider Orthopaedic Surgery
DX: Z98.1 Arthrodesis status (principal)
CPT/HCPCS: 97110; 97112; 97140